=== PATIENT | male | born 1960 | race Two or more races ===

== ENCOUNTER → 2017-03-05 | Outpatient (CLI) | payer OTHER ==
[2017-03-05 17:21] LABS: Anion Gap 11 mmol/L; Blood Urea Nitrogen 18 mg/dL (9-20); Carbon Dioxide 35 mmol/L (22-30); Chloride 99 mmol/L (98-107); Glucose 97 mg/dL (74-99); Potassium 4.2 mmol/L (3.5-5.1); Sodium 145 mmol/L (137-145)
[2017-03-05 17:23] LABS: Basophils % (A) 1 %; Eosinophils # (A) 0.1 k/uL (0-0.7); Eosinophils % (A) 2 %; HCT 39.4 % (39.0-53.0); HGB 13.1 gm/dL (13.0-17.5); Lymphocytes # (A) 1.6 k/uL (1.0-4.8); Lymphocytes % (A) 31 %; MCHC 33.3 g/dL (31.0-37.0); MCV 90.1 fL (80.0-100.0); Mean Platelet Volume 7.3; Monocytes # (A) 0.3 k/uL (0-1.0); Monocytes % (A) 6 %; Neutrophils # (A) 3.1 k/uL (1.3-7.7); Neutrophils % (A) 59 %; Platelet Count 199 k/uL (150-450); RBC 4.37 m/uL (4.30-5.90); RDW 14.2 % (11.5-15.5); WBC 5.2 k/uL (3.8-10.6)
== END | disposition home or self-care (01) ==
LOC: LABPAT 16:31
PROVIDERS: ATTEND Urology
DX: Z01.818 Encounter for other preprocedural examination (principal); Z01.812 Encounter for preprocedural laboratory examination; C61 Malignant neoplasm of prostate; I10 Essential (primary) hypertension; E78.5 Hyperlipidemia, unspecified
CPT/HCPCS: 80048; 85025; 87077; 87086; 87186; 93005

== ENCOUNTER 2017-03-12 11:11 | Day surgery (SDC) | payer OTHER ==
[2017-03-07 12:01] VITALS: BMI 24.5
[~2017-03-12 11:11] MED LIST: DEXAMETHASONE SOD PHOSPHATE 10 MG/ML 1 ML VIAL IV ONE; HEPARIN SODIUM,PORCINE 5,000 UNIT/ML 1 ML VIAL SQ ONE; HYDROmorphone 0.5 MG/0.5 ML SYRINGE IVP PRN; MIDAZOLAM 2 MG/2 ML VIAL IV PRN; ONDANSETRON 4 MG/2 ML VIAL IVP ONE; ceFAZolin IN SWFI 2 GM/20 ML SYRINGE IVP ONE
[2017-03-12] MEDS: LACTATED RINGERS 1,000 ML IV SCH (12:10)
[2017-03-12] MEDS ORDERED: LIDOCAINE 1% 20 ML VIAL (10MG/ML) FOR IV START INTRADERMA ONE (12:10)
[2017-03-12] MEDS ORDERED: SCOPOLAMINE 1.5MG/72HR PATCH TRANSDERM ONE (12:11)
[2017-03-12] MEDS ORDERED: BUPIVACAINE (PF) 0.25% 30 ML VIAL SQ ONE ×2 (13:27)
[2017-03-12] MEDS ORDERED: fentaNYL (PF) 50 MCG/ML 2 ML AMP ONE (13:31)
[2017-03-12] MEDS ORDERED: GLYCOPYRROLATE 0.2 MG/ML 2 ML VIAL ONE (13:31)
[2017-03-12] MEDS ORDERED: PROPOFOL 10 MG/ML 20 ML VIAL IV ONE (13:31)
[2017-03-12] MEDS ORDERED: LIDOCAINE 1% INJ 10MG/ML (20 ML MDV) ONE (13:31)
[2017-03-12] MEDS ORDERED: ePHEDrine SULFATE/0.9% NACL/PF 50 MG/5 ML SYRINGE IV ONE (13:31)
[2017-03-12] MEDS ORDERED: HYDROmorphone (PF) 1 MG/ML ONE (13:31)
[2017-03-12] MEDS ORDERED: SUCCINYLCHOLINE CHLORIDE 100 MG/5 ML SYR IV ONE (13:31)
[2017-03-12] MEDS ORDERED: MIDAZOLAM 2 MG/2 ML VIAL ONE (13:31)
[2017-03-12] MEDS ORDERED: ROCURONIUM BROMIDE 10 MG/ML 10 ML VIAL IV ONE (13:31)
[2017-03-12] MEDS ORDERED: NEOSTIGMINE 1 MG/ML 10 ML VIAL ONE (13:31)
[2017-03-12] MEDS ORDERED: ONDANSETRON 4 MG/2 ML VIAL IVP PRN (15:36)
[2017-03-12] MEDS ORDERED: HYDROmorphone 2 MG/ML 1 ML SYRINGE IVP PRN (15:36)
[2017-03-12] MEDS ORDERED: KETOROLAC 30 MG/ML 1 ML VIAL IVP PRN (15:36)
[2017-03-12] MEDS ORDERED: LACTATED RINGERS 1,000 ML IV ONE (16:56)
[2017-03-12] MEDS: DEXTROSE 5%-0.45% NACL 1,000 ML IV SCH (17:23)
[2017-03-12] MEDS: HEPARIN SODIUM,PORCINE 5,000 UNIT/ML 1 ML VIAL SQ SCH (17:23)
[2017-03-13] MEDS: HEPARIN SODIUM,PORCINE 5,000 UNIT/ML 1 ML VIAL SQ SCH ×2 (00:27→07:23)
[2017-03-13] MEDS: DEXTROSE 5%-0.45% NACL 1,000 ML IV SCH ×2 (00:27→07:27)
[2017-03-13 02:44] VITALS: RESP 16
--- NOTE | 2017-03-13 07:26 | P.DS ---
Providers Date of admission: 03/12/2017 Expected date of discharge: 03/13/17 Attending physician: Lida Piña Primary care physician: Jozef Pretty MD Hospital Course: the patient is a 56-year-old male who was diagnosed with prostate cancer in late 2017 and has elected to undergo treatment with robotically assisted laparoscopic prostatectomy. The patient underwent the procedure performed by on the date of admission. He was comfortable postop and was discharged the following day with his Wilburn catheter in place. The patient's incisions appear to be intact and uninflamed. The patient was ambulatory and tolerating a regular diet. Procedures: pelvic lymphadenectomy and robotically assisted laparoscopic prostatectomy-2017 Plan - Discharge Summary Discharge Rx Participant: No New Discharge Prescriptions: New Acetaminophen-Codeine 300-30mg [Tylenol w/codeine #3] 1 tab PO Q6H PRN #15 tablet PRN Reason: Pain No Action Citalopram Hydrobromide [CeleXA] 20 mg PO DAILY Atorvastatin [Lipitor] 10 mg PO DAILY Multivitamin [Men's Multi-Vitamin] 1 each PO DAILY Discharge Medication List Atorvastatin [Lipitor] 10 mg PO DAILY 03/07/17 [History] Citalopram Hydrobromide [CeleXA] 20 mg PO DAILY 03/07/17 [History] Multivitamin [Men's Multi-Vitamin] 1 each PO DAILY 03/07/17 [History] Acetaminophen-Codeine 300-30mg [Tylenol w/codeine #3] 1 tab PO Q6H PRN #15 tablet 03/13/17 [Rx] Follow up Appointment(s)/Referral(s): Rito Baxter MD [STAFF PHYSICIAN] - 1 Week Activity/Diet/Wound Care/Special Instructions: Provide with leg bag and large bag Discharge Disposition: HOME SELF-CARE Pending Studies Pending Results: pathology report
[2017-03-13 07:37] VITALS: BP 128/65; PULSE 97; TEMP 98
--- NOTE | 2017-05-30 09:02 | P.OP ---
Date of Procedure: 03/12/17 Preoperative Diagnosis: prostate cancer Postoperative Diagnosis: prostate cancer Procedure(s) Performed: 1. robotic radical prostatectomy 2. robotic bilateral pelvic lymph node dissection Implants: none Anesthesia: NAHUM PRATT Surgeon: Lida Piña Estimated Blood Loss (ml): 100 IV fluids (ml): 1,600 Urine output (ml): 400 Pathology: other (prostate. seminal vesicles and lymph nodes) Condition: stable Disposition: PACU Indications for Procedure: prostate cancer Operative Findings: normal size prostate, no evidence of extra capsular extension, lymph nodes not enlarged Description of Procedure: This is a patient with a history of prostate cancer. The procedure of robot assisted laparoscopic radical prostatectomy was discussed with the patient including the potential risks and complications of the procedure. He elected to proceed with the operation. A nodule was not detected on digital exam under anesthesia. The patient was placed in a supine, Trendelenberg position with adequate padding of the pressure points, shoulders, back, legs and arms. He was then prepped and draped in the standard fashion. A 18F forman catheter was placed to gravity drainage. A Veress needle was placed through a codey-umbilical puncture and a pneumo-peritoneum created to 20mmHg during port placement which is thereafter lowered to 15mmHg. A 12mm port on the left side of the umbilicus was placed for the scope. Next, under vision a 8mm robotic ports was placed lateral to each rectus slightly below the camera port. The right assistant secretary right iliac fossa 12mm port and right paramedian 5mm port were placed followed by the left iliac fossa 5mm port. The robot was then docked to the 8mm robotic ports and then each robotic arm and tower was checked in relation to the patient's legs and hands to avoid inadvertent compression. The peritoneal cavity was inspected and then an inverted U-shaped incision began laterally to the left medial umbilical ligament and extended high across the midline to the right umbilical ligament. The limbs of the "U" extended to the level of the vasa on both sides. We next developed the preperitoneal space and the space of Retzius. Cautery was used to dissected the bladder away from the prostate. After the anterior bladder neck was incised and the bladder entered the the posterior bladder neck was exposed and the ureteral orifices identified. The posterior bladder neck was then incised and dissected away from the prostate. The bladder neck was noted to be normal and did not require reconstruction. The vas and the seminal vesicles were now exposed and dissected to their insertions into the prostate and were not spared. The posterior layer of the Denonvillier's fascia was incised to enter into the plane between prostate and perirectal fat. Each lateral pedicle was controlled with clips and cautery for hemostasis. Nerve preservation was performed as listed above. The puboprostatic ligament was incised where it inserted into the apex of the prostate and a plane between urethra and dorsal venous complex developed to expose the anterior urethral surface. The anterior wall of the urethra was transected with the scissors a few millimeters distal to the apex of the prostate. DV suture was placed. The freed specimen was then inspected and placed in an endo-catch specimen retrieval bag. The prostate was removed following the completion of the anastomosis. Internal and External Iliac lymph node packets were dissected after careful visualization of the hypogastric artery and obturator nerve. There was attention paid to hemostasis with judicious use of cautery. Two 3-0 V-Lock stitches (MVAC) tied together to form a pledget were used to complete the running continuous circumferential urethrovesical anastamosis with dual layer reconstruction. The outer layer V-Lock suture was placed initially to reapproximate Denonvillier's fascia posteriorly before placing the inner layer MVAC suture as the urethrovesical anastamosis proper. After the inner layer was tied, the anastamosis was checked for leaks before closing the outer layer anteriorly. A new 20 Lao Forman catheter was introduced and inflated to 20cc. The bladder was filled with 250 cc saline, with the balloon to test the integrity of the anastomosis. No leak was identified. The specimen was removed after enlarging the umbilical port incision as required. The umbilical fascia was closed with PDS suture and closed in layers. All ports were closed with a subcuticular stitch. Sponge, instrument, and needle counts were correct at the end of the case. The patient tolerated the procedure well and was accompanied to the recovery room in stable condition.
== END 2017-03-13 11:45 | disposition home or self-care (01) ==
LOC: ORWHC2ENDO 11:11 → EDSTATUS 13:00 → 3SUR 15:39 → ORWHC2ENDO 03-13 11:45
PROVIDERS: ATTEND Urology
DX: C61 Malignant neoplasm of prostate (principal); E78.5 Hyperlipidemia, unspecified; I10 Essential (primary) hypertension; E55.9 Vitamin D deficiency, unspecified; D70.9 Neutropenia, unspecified; F32.9 Major depressive disorder, single episode, unspecified; Z79.899 Other long term (current) drug therapy
CPT/HCPCS: 86900; 86901; 86850; 88307; 88309; 36415; 55866; C1762; J2250; J1170 ×2; J1644 ×2; J1100; J2710; J2405; J2001; J3010; J1885; J0330; J2704; J0690

== ENCOUNTER 2017-09-26 14:15 | Emergency (ER) | payer OTHER ==
[2017-09-26 15:18] VITALS: RESP 18
--- NOTE | 2017-09-26 16:50 | XR ---
EXAMINATION TYPE: XR hand complete RT DATE OF EXAM: 09/26/2017 COMPARISON: NONE HISTORY: Laceration pain TECHNIQUE: 3 views FINDINGS: There is some spurring at the IP joints. There is some soft tissue deformity consistent wit h laceration at the PIP joint of the little finger. There are small foreign bodies near the skin surf calvin. There is a soft tissue mass with 3 mm calcification adjacent to the distal end of the proximal p halanx of the thumb. There are no erosions. There is nondisplaced longitudinal fracture along the sh aft of the middle phalanx of the little finger. This is seen on just one view. IMPRESSION: Osteoarthritis. Foreign body near the skin surface of the PIP joint of the little finger. Mass with calcification or foreign body at the thumb. No change compared to [place] exam at 1:00 PM today. Longitudinal nondisplaced fracture of the middle phalanx of the little finger. No change in position.
[2017-09-26] MEDS ORDERED: ceFAZolin 1,000 MG VIAL IM STA (16:54)
[2017-09-26] MEDS ORDERED: DIPH,PERTUS(ACELL)TETVAC-LF 0.5 ML VIAL IM ONE (16:54)
[2017-09-26] MEDS ORDERED: LIDOCAINE 1% INJ 10MG/ML (20 ML MDV) SQ ONE (16:55)
--- NOTE | 2017-09-26 16:56 | ED ---
General Adult HPI - General Chief complaint: Wound/Laceration Stated complaint: CRUSHING INJURY Time Seen by Provider: 09/26/17 15:43 Source: patient Mode of arrival: ambulatory Limitations: no limitations - History of Present Illness Initial comments: 57-year-old male patient presents to the emergency department for a chief complaint of right hand injury. Patient states he was carrying a piece of boiler machinery today when it was dropped on his right 5th digit. Patient states the piece of machinery likely weighed up to 500 pounds. Patient denies dropping the machinery anywhere else on the hand. Patient denies any other injuries. Patient states he did try to go to urgent care but they could not tell if he had a fracture so they sent him to the emergency department. Patient is right-hand dominant. Patient has not injured this hand before. Patient has no other complaints at this time including shortness of breath, chest pain, abdominal pain, nausea or vomiting, headache, or visual changes. - Related Data Home Medications Medication Instructions Recorded Confirmed Atorvastatin [Lipitor] 10 mg PO DAILY 03/07/17 03/12/17 Citalopram Hydrobromide [CeleXA] 20 mg PO DAILY 03/07/17 03/12/17 Multivitamin [Men's Multi-Vitamin] 1 each PO DAILY 03/07/17 03/12/17 Previous Rx's Medication Instructions Recorded Acetaminophen-Codeine 300-30mg 1 tab PO Q6H PRN #15 tablet 03/13/17 [Tylenol w/codeine #3] Cephalexin [Keflex] 500 mg PO TID 10 Days capsule 09/26/17 Allergies Allergy/AdvReac Type Severity Reaction Status Date / Time No Known Allergies Allergy Verified 09/26/17 15:18 Review of Systems ROS Statement: Those systems with pertinent positive or pertinent negative responses have been documented in the HPI. ROS Other: All systems not noted in ROS Statement are negative. Past Medical History Past Medical History: Cancer, Hyperlipidemia Additional Past Medical History / Comment(s): prostate cancer History of Any Multi-Drug Resistant Organisms: None Reported Additional Past Surgical History / Comment(s): colonoscopy Past Anesthesia/Blood Transfusion Reactions: No Reported Reaction Past Psychological History: Anxiety Smoking Status: Never smoker Past Alcohol Use History: Occasional Past Drug Use History: None Reported - Past Family History Mother Family Medical History: No Reported History General Exam Limitations: no limitations General appearance: alert, in no apparent distress Head exam: Present: atraumatic, normocephalic, normal inspection Eye exam: Present: normal appearance, PERRL, EOMI. Absent: scleral icterus, conjunctival injection, periorbital swelling, periorbital tenderness ENT exam: Present: normal exam, mucous membranes moist Neck exam: Present: normal inspection, full ROM. Absent: tenderness, meningismus, lymphadenopathy Respiratory exam: Present: normal lung sounds bilaterally. Absent: respiratory distress, wheezes, rales, rhonchi, stridor Cardiovascular Exam: Present: regular rate, normal rhythm, normal heart sounds. Absent: systolic murmur, diastolic murmur, rubs, gallop, clicks Extremities exam: Present: tenderness (tenderness along the right 5th digit), normal capillary refill (Capillary refill less than 2 seconds in the right fifth digit as well as the remainder of the right hand. Radial pulse 2+), joint swelling (Patient does have minimal swelling of the right fifth digit), other (Sensation intact in the right fifth digit. Patient has a 2 cm x 0.5 cm skin avulsion extending along the radial and palmar aspect of the right fifth digit. There is also a 2 cm x 1 cm superficial abrasion to the lateral aspect of the right fifth digit over the PIP joint. 3 small foreign bodies were removed. No visualization of tendons or bone.). Absent: full ROM (Patient has about 45 of flexion of the MCP, DIP, and PIP joints in the right fifth digit.) Neurological exam: Present: alert, oriented X3, CN II-XII intact Psychiatric exam: Present: normal affect, normal mood Course Vital Signs 09/26/17 15:12 Temperature 98.2 F Pulse Rate 64 Respiratory 18 Rate Blood Pressure 137/78 O2 Sat by Pulse 100 Oximetry Medical Decision Making - Medical Decision Making 57-year-old male presents to the emergency department for a chief complaint of injury to the right fifth digit. Patient states a 500 pound piece of equipment fell on his right fifth digit. Patient did go to urgent care but they could not diagnose whether he had a fracture or not. I did attempt to upload disc from urgent care as he had an x-ray there but at this point x-ray tech recommends ordering x-ray here. On exam neurovascular intact in the right fifth digit. Patient is able to bend all joints in the finger to about 45 degrees. There is a 2 cm x 0.5 cm skin avulsion to the radial aspect of the right fifth digit along the middle phalanx. There is also a more superficial abrasion to the ulnar aspects of the right fifth digit. X-ray of the right hand shows some soft tissue deformity consistent with a laceration at the PIP joint of the little finger. There are small foreign bodies near the skin surface. There is a soft tissue mass with a calcification on the proximal phalanx of the thumb. Patient is aware of this and has had it since childhood. There are no erosions. There is a nondisplaced longitudinal fracture along the shaft of the middle phalanx of the little finger on one view. Finger was numbed using 4 ml 1% lidocaine digital block. 3 foreign bodies were removed from the wound. It was soaked in soap and water and irrigated extensively with a liter of sterile water. It was then reinspected for any additional foreign bodies and none were found. Area cannot be sutured at this point due to avulsion of skin so Gelfoam was applied. Bleeding controlled at this point. I did speak with Dr. Whitman who will see the patient on Friday. He is up-to-date on tetanus but was given Ancef and Keflex. He agrees to follow up. Disposition Clinical Impression: Finger fracture, right, Open fracture Disposition: HOME SELF-CARE Condition: Good Instructions: Finger Fracture (ED) Additional Instructions: Please take Keflex as directed. Use splint on finger. Please follow-up with orthopedics on Friday. Return to the emergency department if you have any worsening symptoms such as spreading redness or signs of infection. Prescriptions: Cephalexin [Keflex] 500 mg PO TID 10 Days capsule Is patient prescribed a controlled substance at d/c from ED?: No Referrals: Jozef Pretty MD [Primary Care Provider] - 1-2 days Time of Disposition: 18:14
[2017-09-26] MEDS ORDERED: GELATIN SPONGE,ABSORB (LARGE) 1 EACH SPONGE TOPICAL STA (17:25)
[2017-09-26 18:52] VITALS: BP 160/85; PULSE 67; TEMP 98.1
== END 2017-09-26 18:50 | disposition home or self-care (01) ==
LOC: EC 14:15
DX: S62.656B Nondisplaced fracture of middle phalanx of right little finger, initial encounter for open fracture (principal); M79.89 Other specified soft tissue disorders; E78.5 Hyperlipidemia, unspecified; F41.9 Anxiety disorder, unspecified; Z79.899 Other long term (current) drug therapy; Z23 Encounter for immunization; W31.89XA Contact with other specified machinery, initial encounter; Y93.89 Activity, other specified; Y92.69 Other specified industrial and construction area as the place of occurrence of the external cause; Y99.0 Civilian activity done for income or pay
CPT/HCPCS: 73130; 90715; 99283; 90471; 96372; J0690; J2001

== ENCOUNTER 2017-12-31 08:36 | Day surgery (SDC) | payer OTHER ==
[2017-12-25 12:56] VITALS: BMI 25.0
[~2017-12-31 08:36] MED LIST changes: +DEXAMETHASONE SOD PHOSPHATE 4 MG/ML 1 ML VIAL IV ONE; +FAMOTIDINE 20 MG/2 ML VIAL IV ONE; -HEPARIN SODIUM,PORCINE 5,000 UNIT/ML 1 ML VIAL SQ ONE; +LACTATED RINGERS 1,000 ML IV SCH; -MIDAZOLAM 2 MG/2 ML VIAL IV PRN; +Pre Op ABX Message 1 EACH MISC MISCELLANE ONE; +ceFAZolin 1,000 MG in DEXTROSE/WATER 1 50ML.BAG IV ONE; -ceFAZolin IN SWFI 2 GM/20 ML SYRINGE IVP ONE
[2017-12-31] MEDS ORDERED: LIDOCAINE 1% 20 ML VIAL (10MG/ML) FOR IV START INTRADERMA ONE (09:19)
[2017-12-31] MEDS ORDERED: PROPOFOL 10 MG/ML 20 ML VIAL IV ONE (10:21)
[2017-12-31] MEDS ORDERED: GLYCOPYRROLATE 0.2 MG/ML 2 ML VIAL ONE (10:21)
[2017-12-31] MEDS ORDERED: NEOSTIGMINE 1 MG/ML 10 ML VIAL ONE (10:21)
[2017-12-31] MEDS ORDERED: fentaNYL (PF) 50 MCG/ML 2 ML AMP ONE (10:21)
[2017-12-31] MEDS ORDERED: MIDAZOLAM 2 MG/2 ML VIAL ONE (10:21)
[2017-12-31] MEDS ORDERED: LIDOCAINE 1% INJ 10MG/ML (20 ML MDV) ONE (10:21)
[2017-12-31] MEDS ORDERED: SUCCINYLCHOLINE CHLORIDE 100 MG/5 ML SYR IV ONE (10:21)
[2017-12-31] MEDS ORDERED: ROCURONIUM BROMIDE 10 MG/ML 10 ML VIAL IV ONE (10:21)
[2017-12-31] MEDS ORDERED: ceFAZolin 1,000 MG/50 ML BAG (PMX) IVPB ONE (10:26)
--- NOTE | 2017-12-31 10:59 | P.OP ---
Date of Procedure: 12/31/17 Preoperative Diagnosis: Left base of tongue/vallecula mass Postoperative Diagnosis: Same Procedure(s) Performed: Direct microlaryngoscopy with biopsy left base of tongue Flexible bronchoscopy Rigid esophagoscopy Anesthesia: TERENCE Surgeon: Ethan Mclean Estimated Blood Loss (ml): 2 Pathology: other (Left base of tongue biopsy) Condition: stable Disposition: PACU Indications for Procedure: This is a 57-year-old white male with some dysphagia symptoms and notable left base of tongue/vallecula lesion Operative Findings: Approximate 2.5 x 3 cm left base of tongue lesion extending into the vallecula- this is exophytic and firm multinodular Description of Procedure: The patient brought in to place a supine position. The patient underwent induction of general anesthesia with oral endotracheal intubation without difficulty. The patient was prepped and draped in usual aseptic fashion. Tooth guard was placed. Rigid esophagoscopy was performed to a level of 40 cm from the upper incisors with no abnormalities noted in the esophagus. This was withdrawn and there was no notable trauma to the mucosa at all. Direct laryngoscopy was then performed with systematic evaluation of the base of tongue vallecula both piriform sinuses post cricoid area and endolarynx. With the laryngoscope in position to visualize the vocal cords the laryngoscope was placed in suspension and flexible bronchoscopy was performed to the secondary bronchi with no abnormalities noted. The bronchoscope was then withdrawn. The laryngoscopy including microlaryngoscopy was then continued to visualize the left base of tongue mass and multiple biopsies were taken some sent for formalin and some sent in saline including for cytology and as well for HPV markers. Hemostasis was gained spontaneously. The laryngoscope and tooth guard were removed. The patient was allowed to emerge from general anesthesia having tolerated procedure well was extubated in the operative suite and transferred to postop recovery area in satisfactory condition.
[2017-12-31 11:10] VITALS: TEMP 98.1
[2017-12-31] MEDS ORDERED: LACTATED RINGERS 1,000 ML IV ONE (11:34)
[2017-12-31 12:02] VITALS: BP 142/70; PULSE 67; RESP 18
== END 2017-12-31 12:31 | disposition home or self-care (01) ==
LOC: OR 08:36
PROVIDERS: ATTEND Otolaryngology
DX: C01 Malignant neoplasm of base of tongue (principal); E04.1 Nontoxic single thyroid nodule; E78.5 Hyperlipidemia, unspecified; Z79.2 Long term (current) use of antibiotics; Z79.52 Long term (current) use of systemic steroids; Z79.899 Other long term (current) drug therapy; Z85.46 Personal history of malignant neoplasm of prostate
CPT/HCPCS: 31536; 31622; 43191; J2250; J1100; J2710; J2405; J2001; J3010; J0690; J0330; J2704; 88305; 88341; 88342

== ENCOUNTER → 2018-01-17 | Outpatient (CLI) | payer OTHER ==
--- NOTE | 2018-01-20 16:37 | PE ---
Nuclear medicine PET/CT history: Carcinoma of tongue, initial Patient received 9.9 mCi F-18 FDG intravenously and delayed scanning was performed from the skull bas e to the mid thighs. Localization and attenuation correction CT scan was performed. Small field-of-vi ew images were also performed through the head and neck. Correlation to CT neck 12/23/2017 FINDINGS: Head and neck: There is hypermetabolic uptake associated with the base of the tongue on the left exte nding towards the vallecula compatible with patient's history of carcinoma, there is associated soft tissue mass present as previously described, SUV is 18. There is increased hypermetabolic uptake at a nonenlarged node at the level of the hyoid bone on the left just posterior to the submandibular glan d, SUV is 3.4. Small immediate adjacent node is also present again with only mild uptake on the left, SUV 3.4. Right-sided thyroid nodule shows associated hypermetabolic uptake, SUV is 6.7. Lungs show no mass. No mediastinal, hilar, or axillary adenopathy. Abdomen pelvis: No retroperitoneal adenopathy. No evident liver or adrenal mass. No suspicious hyperm etabolic uptake. The aorta shows normal caliber. There is no pelvic adenopathy or free fluid. Osseous structures are within normal limits. 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 Suspicious hypermetabolic uptake within the right thyroid gland.
== END | disposition home or self-care (01) ==
LOC: RADPETMAIN 14:26
PROVIDERS: ATTEND Internal Medicine Hematology & Oncology
DX: R93.89 Abnormal findings on diagnostic imaging of other specified body structures (principal); C01 Malignant neoplasm of base of tongue
CPT/HCPCS: 78815; A9552

== ENCOUNTER 2018-04-04 10:00 | Inpatient (IN) | payer OTHER ==
[2018-04-04] MEDS ORDERED: SODIUM CHLORIDE 0.9% 2,000 ML IV STA (10:55)
[2018-04-04] MEDS ORDERED: SODIUM CHLORIDE 0.9% 1,000 ML IV STA (10:55)
[2018-04-04] MEDS ORDERED: KETOROLAC 30 MG/ML 1 ML VIAL IVP STA (10:57)
--- NOTE | 2018-04-04 11:02 | ED ---
Nausea/Vomiting/Diarrhea HPI - General Chief complaint: Nausea/Vomiting/Diarrhea Stated complaint: Dehydration Time Seen by Provider: 04/04/18 10:25 Source: patient, family, RN notes reviewed Mode of arrival: ambulatory Limitations: no limitations - History of Present Illness Initial comments: This a 57-year-old male with a history of throat and posterior tongue cancer who is had a total of 35 radiation treatments last one being 3 days ago and last chemo 2 weeks ago who is been feeling with respect to continue to drink for some period time he did decrease oral intake over last month he has severe pain in his throat when he tries to swallow he's had decreased bowel movements to decrease oral intake he's supposed be taking 6 and sugars every day he's states he U2). He tried Viscous Xylocaine with other components and after taking as he throws up short time later. They're requesting to drink anything he throws up a short time later. He's had concentrated urine generalized severe weakness no focal deficits. He was sent over here by radiation oncology for evaluation and treatment. MD complaint: nausea, vomiting, other - Related Data Home Medications Medication Instructions Recorded Confirmed Hydrocodone/Acetaminophen [[place] 1 tab PO QID PRN 03/13/18 04/04/18 10-325] LORazepam [Ativan] 0.5 mg PO QID 04/04/18 04/04/18 Multivitamins, Thera [Multivitamin 1 tab PO DAILY 04/04/18 04/04/18 (formulary)] Ondansetron Odt [Zofran Odt] 8 mg PO Q4H PRN 04/04/18 04/04/18 Pantoprazole [Protonix] 40 mg PO DAILY 04/04/18 04/04/18 fentaNYL 12MCG/HR PATCH [Duragesic 1 patch TRANSDERM Q72H 04/04/18 04/04/18 12MCG/HR] Allergies Allergy/AdvReac Type Severity Reaction Status Date / Time No Known Allergies Allergy Verified 04/04/18 10:40 Review of Systems ROS Statement: Those systems with pertinent positive or pertinent negative responses have been documented in the HPI. ROS Other: All systems not noted in ROS Statement are negative. Past Medical History Past Medical History: Cancer, Hyperlipidemia Additional Past Medical History / Comment(s): prostate cancer, throat cancer History of Any Multi-Drug Resistant Organisms: None Reported Past Surgical History: Prostate Surgery Additional Past Surgical History / Comment(s): colonoscopy. PROSTATECTOMY Past Anesthesia/Blood Transfusion Reactions: No Reported Reaction Past Psychological History: Anxiety Smoking Status: Never smoker Past Alcohol Use History: None Reported Past Drug Use History: None Reported - Past Family History Mother Family Medical History: No Reported History General Exam - General Exam Comments Initial Comments: This is a well-developed asthenic appearing male who is awake alert oriented 3 Limitations: no limitations General appearance: lethargic Head exam: Present: atraumatic, normocephalic, normal inspection Eye exam: Present: normal appearance, PERRL, EOMI. Absent: scleral icterus, conjunctival injection, periorbital swelling ENT exam: Present: mucous membranes dry, other (Posterior pharyngeal erythema with some faint evidence of possible whitish exudate on the uvula and posterior pharynx) Neck exam: Present: normal inspection. Absent: tenderness, meningismus, lymphadenopathy Respiratory exam: Present: normal lung sounds bilaterally. Absent: respiratory distress, wheezes, rales, rhonchi, stridor Cardiovascular Exam: Present: regular rate, normal rhythm, normal heart sounds. Absent: systolic murmur, diastolic murmur, rubs, gallop, clicks GI/Abdominal exam: Present: soft, normal bowel sounds. Absent: distended, tenderness, guarding, rebound, rigid Extremities exam: Present: normal inspection, full ROM, normal capillary refill. Absent: tenderness, pedal edema, joint swelling, calf tenderness Back exam: Present: normal inspection Neurological exam: Present: alert, oriented X3, CN II-XII intact Psychiatric exam: Present: normal affect, normal mood Skin exam: Present: warm, dry, intact, normal color. Absent: rash Course Vital Signs 04/04/18 10:05 Temperature 98.3 F Pulse Rate 96 Respiratory 18 Rate Blood Pressure 118/75 O2 Sat by Pulse 97 Oximetry Medical Decision Making - Medical Decision Making I did discuss findings with patient has . Patient will be admitted for IV hydration and evaluation by medical and radiation oncology. He does demonstrate failure to thrive, dehydration, dysphagia - Lab Data Result diagrams: 04/04/18 12:00 04/04/18 10:58 Lab Results 04/04/18 04/04/18 04/04/18 Range/Units 10:58 10:58 12:00 WBC 2.1 L (3.8-10.6) k/uL RBC 2.71 L (4.30-5.90) m/uL Hgb 8.6 L D (13.0-17.5) gm/dL Hct 24.3 L (39.0-53.0) % MCV 89.8 (80.0-100.0) fL MCH 31.5 (25.0-35.0) pg MCHC 35.1 (31.0-37.0) g/dL RDW 17.4 H (11.5-15.5) % Plt Count 234 (150-450) k/uL Neutrophils % (Manual) 63 % Band Neutrophils % 5 % Lymphocytes % (Manual) 19 % Monocytes % (Manual) 12 % Eosinophils % (Manual) 1 % Neutrophils # (Manual) 1.40 (1.3-7.7) k/uL Lymphocytes # (Manual) 0.40 L (1.0-4.8) k/uL Monocytes # (Manual) 0.25 (0-1.0) k/uL Eosinophils # (Manual) 0.02 (0-0.7) k/uL Nucleated RBCs 0 0 (0-0) /100 WBC Manual Slide Review Performed Anisocytosis Slight Slight Sodium 137 (137-145) mmol/L Potassium 4.7 (3.5-5.1) mmol/L Chloride 99 (98-107) mmol/L Carbon Dioxide 29 (22-30) mmol/L Anion Gap 9 mmol/L BUN 23 H (9-20) mg/dL Creatinine 1.07 (0.66-1.25) mg/dL Est GFR (CKD-EPI)AfAm 89 (>60 ml/min/1.73 sqM) Est GFR (CKD-EPI)NonAf 77 (>60 ml/min/1.73 sqM) Glucose 120 H (74-99) mg/dL Calcium 9.4 (8.4-10.2) mg/dL Total Bilirubin 0.6 (0.2-1.3) mg/dL AST 12 L (17-59) U/L ALT 24 (21-72) U/L Alkaline Phosphatase 87 (38-126) U/L Total Protein 6.7 (6.3-8.2) g/dL Albumin 3.7 (3.5-5.0) g/dL Amylase <30 L (30-110) U/L Lipase 21 L (23-300) U/L - Radiology Data Radiology results: image reviewed Interpreted by me: I did review the imaging and report no evidence of acute findings. Disposition Clinical Impression: Intractable vomiting with nausea, Failure to thrive in adult, Anemia, Dysphagia , Dehydration, History of cancer Disposition: ADMITTED IP TO THIS [facility] Condition: Stable Referrals: Jozef Pretty MD [Primary Care Provider] - 1-2 days
[2018-04-04 11:22] LABS: Anisocytosis Slight
[2018-04-04 11:29] LABS: ALT 24 U/L (21-72); AST 12 U/L (17-59); Albumin 3.7 g/dL (3.5-5.0); Alkaline Phosphatase 87 U/L (38-126); Amylase <30 U/L (30-110); Anion Gap 9 mmol/L; Blood Urea Nitrogen 23 mg/dL (9-20); Calcium 9.4 mg/dL (8.4-10.2); Carbon Dioxide 29 mmol/L (22-30); Chloride 99 mmol/L (98-107); Glucose 120 mg/dL (74-99); Lipase 21 U/L (23-300); Potassium 4.7 mmol/L (3.5-5.1); Sodium 137 mmol/L (137-145); Total Bilirubin 0.6 mg/dL (0.2-1.3); Total Protein 6.7 g/dL (6.3-8.2)
--- NOTE | 2018-04-04 11:55 | XR ---
EXAMINATION TYPE: XR chest 2V DATE OF EXAM: 04/04/2018 COMPARISON: NONE HISTORY: Nausea, vomiting and pain. History of malignancy. TECHNIQUE: Frontal and lateral views of the chest are obtained. FINDINGS: There is no focal air space opacity, pleural effusion, or pneumothorax seen. The cardiac silhouette size is within normal limits. IMPRESSION: No acute cardiopulmonary process.
--- NOTE | 2018-04-04 11:57 | XR ---
EXAMINATION TYPE: XR KUB DATE OF EXAM: 04/04/2018 11:29 AM CLINICAL HISTORY: Nausea, vomiting, history of malignancy TECHNIQUE: 2 upright views of the abdomen are obtained in the AP projection. COMPARISON: None. FINDINGS: No evidence of pneumoperitoneum. No visceromegaly. No evidence of dilated large or small alea wel. No suspicious intra-abdominal or pelvic calcifications. Visualized osseous structures are intact . No suspicious osseous lesions. Degenerative type changes are seen of L4-L5 and L5-S1. IMPRESSION: No acute intra-abdominal or pelvic process.
[2018-04-04 12:01] LABS: Nucleated Red Blood Cells 0 /100 WBC (0-0)
[2018-04-04 12:22] LABS: Anisocytosis Slight; HCT 24.3 % (39.0-53.0); MCH 31.5 pg (25.0-35.0); MCHC 35.1 g/dL (31.0-37.0); MCV 89.8 fL (80.0-100.0); Mean Platelet Volume 6.4; Platelet Count 234 k/uL (150-450); RBC 2.71 m/uL (4.30-5.90); RDW 17.4 % (11.5-15.5); WBC 2.1 k/uL (3.8-10.6)
[2018-04-04 12:26] LABS: HGB 8.6 gm/dL (13.0-17.5)
[2018-04-04 12:57] LABS: Band Neutrophils % 5 %; Eosinophils # (M) 0.02 k/uL (0-0.7); Monocytes # (M) 0.25 k/uL (0-1.0); Neutrophils % (M) 63 %; Nucleated Red Blood Cells 0 /100 WBC (0-0); Total Cells Counted 100
[2018-04-04] MEDS ORDERED: NALOXONE 0.4 MG/ML 1 ML VIAL IV PRN (13:24)
[2018-04-04] MEDS ORDERED: HYDROmorphone 2 MG TAB PO PRN (13:24)
[2018-04-04] MEDS: SODIUM CHLORIDE 0.9% 1,000 ML IV SCH ×2 (14:07→23:25)
[2018-04-04] MEDS: ONDANSETRON 4 MG/2 ML VIAL IVP PRN ×2 (14:16→23:25)
[2018-04-04] MEDS: HYDROmorphone 1 MG/ML 1 ML SYRINGE IVP PRN (14:17)
[2018-04-04 16:33] VITALS: BMI 25.0
[2018-04-04] MEDS: KETOROLAC 30 MG/ML 1 ML VIAL IVP PRN (19:18)
[2018-04-04] MEDS: LORazepam 0.5 MG TAB PO SCH ×2 (20:05→20:06)
[2018-04-04] MEDS: PANTOPRAZOLE 40 MG/10 ML VIAL IVP SCH (20:05)
--- NOTE | 2018-04-04 23:12 | P.HPIM ---
History of Present Illness H&P Date: 04/04/18 Chief Complaint: Nausea and vomiting and unable to tolerate oral diet This a 57-year-old male with a history of hyperlipidemia, prostate cancer status post prostatectomy and recently diagnosed throat and posterior tongue cancer who is had a total of 35 radiation treatments last one being 3 days ago and last chemo 2 weeks ago presented to ER due to decreased oral intake and nausea and vomiting and unable to tolerate oral diet. As per his patient has not been eating solid diet at all for the past 6 weeks. Patient not able to tolerate liquids as well. Patient also having burning pain in the throat and tried multiple medications without much relief. Patient was sent to the hospital by his radiation oncology physician. Chest x-ray showed no acute cardio pulmonary process KUB x-ray showed no acute intra-abdominal process. WBC 2.1 and hemoglobin 8.6 and BUN 23 Review of Systems Constitutional: Patient denies any fever or chills . No generalized weakness or weight loss. Abdomen: Nausea and vomiting and throat pain. No diarrhea patient does have constipation. No abdominal pain. Cardiovascular: Patient denies any chest pain or short of breath no palpitations. Respiratory: patient denied any cough is from production. No shortness of breath Neurologic: Patient denied any numbness or tingling headache. Musculoskeletal: Patient denies any complaints of joint swelling or deformity. Skin: Negative Psychiatric: Negative Endocrine: No heat or cold intolerance. No recent weight gain. Genitourinary: No dysuria or hematuria. All other 14 point ROS negative except the above Past Medical History Past Medical History: Cancer, Hyperlipidemia Additional Past Medical History / Comment(s): prostate cancer, throat cancer History of Any Multi-Drug Resistant Organisms: None Reported Past Surgical History: Prostate Surgery Additional Past Surgical History / Comment(s): colonoscopy. PROSTATECTOMY Past Anesthesia/Blood Transfusion Reactions: No Reported Reaction Past Psychological History: Anxiety Smoking Status: Never smoker Past Alcohol Use History: None Reported Past Drug Use History: None Reported - Past Family History Mother Family Medical History: No Reported History Medications and Allergies Home Medications Medication Instructions Recorded Confirmed Type Hydrocodone/Acetaminophen [[place] 1 tab PO QID PRN 03/13/18 04/04/18 History 10-325] LORazepam [Ativan] 0.5 mg PO QID 04/04/18 04/04/18 History Multivitamins, Thera [Multivitamin 1 tab PO DAILY 04/04/18 04/04/18 History (formulary)] Ondansetron Odt [Zofran Odt] 8 mg PO Q4H PRN 04/04/18 04/04/18 History Pantoprazole [Protonix] 40 mg PO DAILY 04/04/18 04/04/18 History fentaNYL 12MCG/HR PATCH [Duragesic 1 patch TRANSDERM Q72H 04/04/18 04/04/18 History 12MCG/HR] Allergies Allergy/AdvReac Type Severity Reaction Status Date / Time No Known Allergies Allergy Verified 04/04/18 10:40 Physical Exam Vitals: Vital Signs Temp Pulse Resp BP Pulse Ox 04/04/18 14:07 98.9 F 90 18 133/79 98 04/04/18 13:30 98.7 F 87 16 134/73 98 04/04/18 13:20 86 18 134/73 98 04/04/18 13:10 84 17 134/73 98 04/04/18 13:00 85 14 141/72 98 04/04/18 12:50 86 15 141/72 99 04/04/18 12:40 83 18 141/72 98 04/04/18 12:30 92 16 139/74 98 04/04/18 12:20 87 17 139/74 99 04/04/18 12:10 89 16 139/74 98 04/04/18 12:00 94 14 125/74 100 04/04/18 11:54 96 21 125/74 99 04/04/18 10:05 98.3 F 96 18 118/75 97 Intake and Output 04/03/18 04/04/18 04/04/18 22:59 06:59 14:59 Other: Weight 88.451 kg PHYSICAL EXAMINATION: Patient is lying in the bed comfortably, no acute distress, awake alert and oriented.. HEENT: Normocephalic. Neck is supple. Pupils reactive. Nostrils clear. Oral cavity is moist. Ears reveal no drainage. Neck reveals no JVD, carotid bruits, or thyromegaly. CHEST EXAMINATION: Trachea is central. Symmetrical expansion. Lung calhoun clear to auscultation and percussion. CARDIAC: Normal S1, S2 with no gallops. No murmurs ABDOMEN: Soft. Bowel sounds normal. No organomegaly. No abdominal bruits. Extremities: reveal no edema. No clubbing or cyanosis Neurologically awake, alert, oriented x3 with well-coordinated movements. No focal deficits noted Skin: No rash or skin lesions. Psychiatric: Coperative. Nonsuicidal Musculoskeletal: No joint swelling or deformity. Normal range of motion. Results CBC & Chem 7: 04/04/18 12:00 04/04/18 10:58 Labs: Abnormal Lab Results - Last 24 Hours (Table) 04/04/18 04/04/18 Range/Units 10:58 12:00 WBC 2.1 L (3.8-10.6) k/uL RBC 2.71 L (4.30-5.90) m/uL Hgb 8.6 L D (13.0-17.5) gm/dL Hct 24.3 L (39.0-53.0) % RDW 17.4 H (11.5-15.5) % Lymphocytes # (Manual) 0.40 L (1.0-4.8) k/uL BUN 23 H (9-20) mg/dL Glucose 120 H (74-99) mg/dL AST 12 L (17-59) U/L Amylase <30 L (30-110) U/L Lipase 21 L (23-300) U/L Thrombosis Risk Factor Assmnt - DVT/VTE Prophylaxis DVT/VTE Prophylaxis: Pharmacologic Prophylaxis ordered Assessment and Plan Assessment: Nausea vomiting and unable to tolerate oral diet due to recent history of radiation 3 days ago Throat cancer status post chemotherapy 2 weeks ago and radiation 3 days ago History of prostate cancer status post prostatectomy Anxiety Mild neutropenia with WBC 2.1 due to chemotherapy. DVT prophylaxis Plan: Patient will be continued on IV fluids. Continue with liquid diet as tolerated. Continue with Zofran when necessary for nausea and vomiting along with Pepcid IV. Oncology and radiation oncology was consulted. Continue with symptomatic management and further recommendations based on the clinical course. Discussed with the patient and his at bedside in detail. Time with Patient: Greater than 30
[2018-04-04] MEDS: HEPARIN SODIUM,PORCINE 5,000 UNIT/ML 1 ML VIAL SQ SCH (23:27)
[2018-04-05 07:08] LABS: Anisocytosis Slight; HCT 23.9 % (39.0-53.0); HGB 8.3 gm/dL (13.0-17.5); MCH 31.5 pg (25.0-35.0); MCHC 34.9 g/dL (31.0-37.0); MCV 90.3 fL (80.0-100.0); Mean Platelet Volume 6.2; Platelet Count 200 k/uL (150-450); RBC 2.65 m/uL (4.30-5.90); RDW 17.4 % (11.5-15.5); WBC 1.8 k/uL (3.8-10.6)
[2018-04-05 07:17] LABS: Anion Gap 5 mmol/L; Blood Urea Nitrogen 20 mg/dL (9-20); Calcium 8.5 mg/dL (8.4-10.2); Carbon Dioxide 29 mmol/L (22-30); Chloride 106 mmol/L (98-107); Glucose 95 mg/dL (74-99); Potassium 4.7 mmol/L (3.5-5.1); Sodium 140 mmol/L (137-145)
[2018-04-05] MEDS: PANTOPRAZOLE 40 MG/10 ML VIAL IVP SCH ×2 (07:34→20:01)
[2018-04-05] MEDS: LORazepam 0.5 MG TAB PO SCH ×4 (07:34→22:11)
[2018-04-05] MEDS: HEPARIN SODIUM,PORCINE 5,000 UNIT/ML 1 ML VIAL SQ SCH ×2 (07:35→18:44)
[2018-04-05] MEDS: KETOROLAC 30 MG/ML 1 ML VIAL IVP PRN ×2 (07:36→13:40)
[2018-04-05] MEDS: ONDANSETRON 4 MG/2 ML VIAL IVP PRN (07:37)
[2018-04-05 08:17] LABS: Band Neutrophils % 1 %; Lymphocytes # (M) 0.36 k/uL (1.0-4.8); Neutrophils % (M) 57 %; Nucleated Red Blood Cells 0 /100 WBC (0-0); Total Cells Counted 100
[2018-04-05] MEDS: MAG HYDROX/AL HYDROX/SIMETH 30 ML, LIDOCAINE VISCOUS 30 ML, diphenhydrAMINE ELIXIR 75 M... PO SCH ×12 (09:11→22:11)
--- NOTE | 2018-04-05 11:52 | P.CONS ---
History of Present Illness - Reason for Consult Consult date: 04/05/18 Squamous cell carcinoma Requesting physician: Jaun Hinojosa - Chief Complaint Inability to tolerate po intake, pain - History of Present Illness Mr Randall is a pleant male patient of Dr. Pond, who originally was seen in December/2017, after undergoing evaluation for a progressive sore throat that worsened over 6 month period. He did not respond to outpatient antibiotics so he was sent for further evaluation by ENT. ENT identified a mass- like area at the base of his tongue, therefore further diagnostics were ordered. A CT scan soft tissue neck on 12/23/17 revealed ill-defined mass 2.7x3.9cm with an adjacent LN 7mm (felt to be suspicious for malignancy). Laryngoscopy with biopsy on 12/31/17 was positive for squamous cell carcinoma, P16 HPV associated malignancy. He subsequently underwent a PET scan that did not show evidence of distant disease. COncurrent Chemotherapy with Cisplatinum based regimen and radiaiton through Dr. Gonzalez was intitiated on 02/12/18, and he completed 6 cycles of chemotherapy and radiation the week of March 20, 2018. Patient seen with at bedside. He stated the toradol, dilaudid, topical analgesics are not helping his pain in mouth and throat. He is uncomfortable and frustrated. His states this has been getting worse over the past 4 weeks and they have had not relief with any of the interventions this far. He is unable to drink water without pain or vomiting. COnstipation has also been an issue. Dr. Gonzalez did recently start a fentanyl patch, but he has not noticed a difference at this time. Review of Systems A 14 point review of systems assessed and completed and all negative except HPI Past Medical History Past Medical History: Cancer, Hyperlipidemia Additional Past Medical History / Comment(s): prostate cancer, throat cancer History of Any Multi-Drug Resistant Organisms: None Reported Past Surgical History: Prostate Surgery Additional Past Surgical History / Comment(s): colonoscopy. PROSTATECTOMY Past Anesthesia/Blood Transfusion Reactions: No Reported Reaction Past Psychological History: Anxiety Smoking Status: Never smoker Past Alcohol Use History: None Reported Past Drug Use History: None Reported - Past Family History Mother Family Medical History: No Reported History Medications and Allergies Home Medications Medication Instructions Recorded Confirmed Type Hydrocodone/Acetaminophen [[place] 1 tab PO QID PRN 03/13/18 04/04/18 History 10-325] LORazepam [Ativan] 0.5 mg PO QID 04/04/18 04/04/18 History Multivitamins, Thera [Multivitamin 1 tab PO DAILY 04/04/18 04/04/18 History (formulary)] Ondansetron Odt [Zofran Odt] 8 mg PO Q4H PRN 04/04/18 04/04/18 History Pantoprazole [Protonix] 40 mg PO DAILY 04/04/18 04/04/18 History fentaNYL 12MCG/HR PATCH [Duragesic 1 patch TRANSDERM Q72H 04/04/18 04/04/18 History 12MCG/HR] Allergies Allergy/AdvReac Type Severity Reaction Status Date / Time No Known Allergies Allergy Verified 04/04/18 10:40 Physical Exam Vitals: Vital Signs Temp Pulse Pulse Resp BP BP Pulse Ox 04/05/18 08:00 90 16 04/05/18 04:50 98.2 F 90 16 131/69 97 04/04/18 23:45 16 04/04/18 19:57 97.9 F 86 16 147/70 94 L 04/04/18 16:00 91 16 04/04/18 15:00 98.1 F 91 16 128/81 98 04/04/18 14:07 98.9 F 90 18 133/79 98 04/04/18 13:30 98.7 F 87 16 134/73 98 04/04/18 13:20 86 18 134/73 98 04/04/18 13:10 84 17 134/73 98 04/04/18 13:00 85 14 141/72 98 04/04/18 12:50 86 15 141/72 99 04/04/18 12:40 83 18 141/72 98 04/04/18 12:30 92 16 139/74 98 04/04/18 12:20 87 17 139/74 99 04/04/18 12:10 89 16 139/74 98 04/04/18 12:00 94 14 125/74 100 04/04/18 11:54 96 21 125/74 99 Intake and Output 04/04/18 04/05/18 04/05/18 22:59 06:59 14:59 Intake Total 520 800 Balance 520 800 Intake: Intake, IV Titration 400 800 Amount Sodium Chloride 0.9% 1, 400 800 000 ml @ 100 mls/hr IV . Q10H [facility]MAN Rx#:[id number] Oral 120 Other: # Voids 1 1 Gen: Alert and oriented, no acute distress. Head NC, NT Neck: Dry flaking skin on bilateral neck, discolorization from radiation. Mouth: Erythema,scattered thrush, and areas of edema in posterior pharynx. Lungs: CTA bilateral, no increased effort Abdomen: soft nondistended, non tender Heart Tachy regular No palpable adenopathy Extremities no edema Results CBC & Chem 7: 04/05/18 06:25 04/05/18 06:25 Labs: Abnormal Lab Results - Last 24 Hours (Table) 04/04/18 04/05/18 Range/Units 12:00 06:25 WBC 2.1 L 1.8 L (3.8-10.6) k/uL RBC 2.71 L 2.65 L (4.30-5.90) m/uL Hgb 8.6 L D 8.3 L (13.0-17.5) gm/dL Hct 24.3 L 23.9 L (39.0-53.0) % RDW 17.4 H 17.4 H (11.5-15.5) % Neutrophils # (Manual) 1.00 L (1.3-7.7) k/uL Lymphocytes # (Manual) 0.40 L 0.36 L (1.0-4.8) k/uL Chest x-ray: report reviewed Abdominal x-ray: report reviewed Assessment and Plan Plan: Assessment and Recommendations: 1. 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 Unable to tolerate PO Intake:Pain from tx - 14lb weight loss in 2 weeks - Secondary to post treatment Mucocytitis - Possible secondary fungal and viral component - A consult has been placed for Dr. Malloy for Feeding tube for adequate nutrition - Increased fentanyl 50mcg 3. Leukopenia/neutropenia - Hawthorne cultures - Acyclovir and diflucan - Add Zarxio (Discussed with Dr. Gonzalez and Patient and ) 4. Normocytic anemia: secondary to chemo and nutritional - Iron, B12, and folate levels 5. Pain secondary to effects of treatment and possible secondary infection - Continue PRN Pain medications - Viscous Lidocaine - ALthough refusing any PO topical as it garcia - Dex 2mg IV q12 - discussed with Dr. Gonzalez - Protonix IVP BID 6. COnstipation: - Bowel Regimen Senna-s BID - No rectal supp until WBC improves Plan: - Aggressive supportive and symptom managment Thank you for allowing us to participate in his care. Greater than 45 minutes spent face to face with patient and and case discussed with Radiation oncology in detail. Physician Attest: THe complete physical and history was discussed and I devloped the complete impression and plan, agree with dictation, dictated as scribe.
[2018-04-05] MEDS ORDERED: MULTIVITAMINS, THERA 1 EACH TAB PO SCH (12:00)
[2018-04-05 12:45] LABS: Magnesium 1.8 mg/dL (1.6-2.3); Phosphorus 3.6 mg/dL (2.5-4.5); Reticulocyte % 2.7 % (0.5-2.0)
[2018-04-05] MEDS: SODIUM CHLORIDE 0.9% 1,000 ML IV SCH ×2 (13:03→20:02)
[2018-04-05 13:38] LABS: Appearance,Urine Clear (Clear); Bilirubin,Urine Negative (Negative); Blood,Urine Negative (Negative); Color,Urine Yellow; Glucose,Urine (UA) Negative (Negative); Ketones,Urine 2+ (Negative); Leukocyte Esterase,Urine Negative (Negative); Nitrite,Urine Negative (Negative); Protein,Urine Trace (Negative); Specific Gravity,Urine 1.017 (1.001-1.035); Urobilinogen,Urine <2.0 mg/dL (<2.0)
[2018-04-05] MEDS ORDERED: PETROLATUM, WHITE OINT 50 GM TUBE TOPICAL PRN (18:12)
[2018-04-05] MEDS ORDERED: LIDOCAINE VISCOUS 2% 15 ML CUP MUCOUS MEM PRN (18:13)
[2018-04-05] MEDS: DEXAMETHASONE SOD PHOSPHATE 4 MG/ML 1 ML VIAL IV SCH (20:01)
[2018-04-05] MEDS: ACYCLOVIR SODIUM 500 MG in SODIUM CHLORIDE 0.9% 100 ML IVPB SCH (20:02)
[2018-04-05] MEDS: FLUCONAZOLE IN NACL,ISO-OSM 100 MG in SALINE 1 50ML.BAG IVPB SCH (20:02)
[2018-04-05] MEDS ORDERED: LORATADINE 10 MG TAB PO STA (21:38)
[2018-04-05] MEDS: TRIAMCINOLONE ACET 0.5% CREAM 15 GM TUBE TOPICAL SCH (22:10)
[2018-04-05] MEDS: FILGRASTIM-SNDZ 480 MCG/0.8 ML SYRINGE SQ SCH (22:11)
[2018-04-05] MEDS: SENNOSIDES-DOCUSATE SODIUM 1 EACH TAB PO SCH (22:18)
[2018-04-06] MEDS: HEPARIN SODIUM,PORCINE 5,000 UNIT/ML 1 ML VIAL SQ SCH ×3 (00:27→15:30)
--- NOTE | 2018-04-06 01:29 | P.PN ---
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 As per his patient has not been eating solid diet at all for the past 6 weeks. Patient not able to tolerate liquids as well. Patient also having burning pain in the throat and tried multiple medications without much relief. Patient was sent to the hospital by his radiation oncology physician. Chest x-ray showed no acute cardio pulmonary process KUB x-ray showed no acute intra-abdominal process. WBC 2.1 and hemoglobin 8.6 and BUN 23 04/05/2018 Patient is still complaining of throat pain. Not able to take liquids as well. Otherwise no complaints of chest pain or shortness of breath. Gen. surgery was consulted for PEG tube placement. Otherwise patient is being continued on IV hydration. No acute overnight issues. WBC 1.8 and hemoglobin 8.3 Current medications reviewed. Objective - Vital Signs Vital signs: Vital Signs Temp 99 F 04/05/18 21:50 Pulse 63 04/05/18 21:50 Resp 17 04/05/18 21:50 BP 153/68 04/05/18 21:50 Pulse Ox 97 04/05/18 21:50 Intake & Output 04/05/18 04/05/18 04/06/18 06:59 18:59 06:59 Intake Total 1320 800 Balance 1320 800 Intake: Intake, IV Titration 1200 800 Amount Sodium Chloride 0.9% 1, 1200 800 000 ml @ 100 mls/hr IV . Q10H [facility] Rx#:[id number] Oral 120 Other: # Voids 1 1 - Exam PHYSICAL EXAMINATION: Patient is lying in the bed comfortably, no acute distress, awake alert and oriented.. HEENT: Normocephalic. Neck is supple. Pupils reactive. Nostrils clear. Oral cavity is moist. Ears reveal no drainage. Neck reveals no JVD, carotid bruits, or thyromegaly. CHEST EXAMINATION: Trachea is central. Symmetrical expansion. Lung calhoun clear to auscultation and percussion. CARDIAC: Normal S1, S2 with no gallops. No murmurs ABDOMEN: Soft. Bowel sounds normal. No organomegaly. No abdominal bruits. Extremities: reveal no edema. No clubbing or cyanosis Neurologically awake, alert, oriented x3 with well-coordinated movements. No focal deficits noted Skin: No rash or skin lesions. Psychiatric: Coperative. Nonsuicidal Musculoskeletal: No joint swelling or deformity. Normal range of motion. - Labs CBC & Chem 7: 04/05/18 06:25 04/05/18 06:25 Labs: Abnormal Lab Results - Last 24 Hours (Table) 04/05/18 04/05/18 04/05/18 Range/Units 06:25 12:05 13:05 WBC 1.8 L (3.8-10.6) k/uL RBC 2.65 L (4.30-5.90) m/uL Hgb 8.3 L (13.0-17.5) gm/dL Hct 23.9 L (39.0-53.0) % RDW 17.4 H (11.5-15.5) % Neutrophils # (Manual) 1.00 L (1.3-7.7) k/uL Lymphocytes # (Manual) 0.36 L (1.0-4.8) k/uL Retic Count 2.7 H (0.5-2.0) % Urine Protein Trace H (Negative) Urine Ketones 2+ H (Negative) Assessment and Plan Assessment: Nausea vomiting and unable to tolerate oral diet due to recent history of radiation 3 days ago Throat cancer status post chemotherapy 2 weeks ago and radiation 3 days ago History of prostate cancer status post prostatectomy Anxiety neutropenia with WBC 2.1--1.8 due to chemotherapy. DVT prophylaxis Plan: Patient will be continued on IV fluids. Continue with liquid diet as tolerated. Continue with Zofran when necessary for nausea and vomiting along with Pepcid IV. Started on cool solution. Oncology and radiation oncology was consulted. Continue with symptomatic management and further recommendations based on the clinical course. Discussed with the patient and his at bedside in detail. Time with Patient: Greater than 30
[2018-04-06] MEDS: ACYCLOVIR SODIUM 500 MG in SODIUM CHLORIDE 0.9% 100 ML IVPB SCH ×3 (01:35→15:30)
[2018-04-06 07:39] LABS: Anisocytosis Slight; Basophils % (A) 0 %; Eosinophils % (A) 0 %; HCT 24.1 % (39.0-53.0); HGB 8.2 gm/dL (13.0-17.5); Lymphocytes # (A) 0.3 k/uL (1.0-4.8); Lymphocytes % (A) 6 %; MCH 30.8 pg (25.0-35.0); MCHC 34.1 g/dL (31.0-37.0); MCV 90.2 fL (80.0-100.0); Mean Platelet Volume 6.7; Monocytes # (A) 0.4 k/uL (0-1.0); Monocytes % (A) 9 %; Neutrophils # (A) 3.8 k/uL (1.3-7.7); Neutrophils % (A) 82 %; Platelet Count 219 k/uL (150-450); RBC 2.68 m/uL (4.30-5.90); RDW 16.6 % (11.5-15.5); WBC 4.6 k/uL (3.8-10.6)
[2018-04-06] MEDS: HYDROmorphone 1 MG/ML 1 ML SYRINGE IVP PRN ×3 (07:58→17:31)
[2018-04-06] MEDS: PANTOPRAZOLE 40 MG/10 ML VIAL IVP SCH ×2 (07:59→22:13)
[2018-04-06] MEDS: LORazepam 0.5 MG TAB PO SCH ×4 (07:59→22:12)
[2018-04-06] MEDS: TRIAMCINOLONE ACET 0.5% CREAM 15 GM TUBE TOPICAL SCH ×2 (07:59→22:15)
[2018-04-06] MEDS: SODIUM CHLORIDE 0.9% 1,000 ML IV SCH ×3 (08:01→22:15)
[2018-04-06] MEDS: SENNOSIDES-DOCUSATE SODIUM 1 EACH TAB PO SCH ×2 (08:01→22:13)
[2018-04-06] MEDS: DEXAMETHASONE SOD PHOSPHATE 4 MG/ML 1 ML VIAL IV SCH ×2 (08:01→22:13)
[2018-04-06] MEDS: MAG HYDROX/AL HYDROX/SIMETH 30 ML, LIDOCAINE VISCOUS 30 ML, diphenhydrAMINE ELIXIR 75 M... PO SCH ×12 (08:02→22:14)
[2018-04-06 09:48] LABS: Iron Saturation 9.41 (15.00-50.00)
[2018-04-06] MEDS: KETOROLAC 30 MG/ML 1 ML VIAL IVP PRN ×2 (10:00→15:34)
--- NOTE | 2018-04-06 11:21 | P.GSCN ---
<Mary Beverly - Last Filed: 04/06/18 11:10> History of Present Illness Consult date: 04/06/18 Reason for Consult: peg tube Requesting physician: Chelsi Collins History of present illness: CHIEF COMPLAINT: inability to swallow. peg tube placement HISTORY OF PRESENT ILLNESS: 57-year-old male with a history of squamous cell carcinoma of the throat and tongue admitted to the hospital for nausea and weakness. Patient reports he has been unable to tolerate PO intake for the last two weeks. He reports difficulties dating back 5 weeks but was able to tolerate Ensure drinks at that time. Patient reports weight loss of around 20 pounds. General surgery was consulted for placement of PEG tube. PAST MEDICAL HISTORY: See list. PAST SURGICAL HISTORY: See list. MEDICATIONS: See list. ALLERGIES: See list. SOCIAL HISTORY: No illicit drug use. REVIEW OF SYSTEMS: CONSTITUTIONAL: Denies fever or chills. HEENT: Denies blurred vision, vision changes, or eye pain. Reports inability to tolerate PO intake. ENDOCRINE: Denies heat or cold intolerance. CARDIOVASCULAR: Denies chest pain or pressure. RESPIRATORY: No shortness of breath. GASTROINTESTINAL: Denies abdominal pain. NEURO: Denies history of seizures. PSYCH: No depression or suicidal ideation HEMATOLOGIC: Denies bleeding disorders. GENITOURINARY: Denies any blood in urine or increased urinary frequency. MUSCULOSKELETAL: Denies myalgias. Denies joint swelling. Denies decreased range of motion beyond patients baseline. SKIN: Denies pruitis. Denies rash. PHYSICAL EXAM: VITAL SIGNS: Currently stable. GENERAL: Well-developed in no acute distress. HEENT: No sclera icterus. Extraocular movements grossly intact. Moist buccal mucosa with scattered thrush. Head is atraumatic, normocephalic. Hears conversational speech. No nasal drainage. CHEST: Non-labored respirations and equal bilateral excursions. CARDIOVASCULAR: Regular rate with regular rhythm. Palpable 2+ radial pulses. ABDOMEN: Soft. Nondistended. Nontender. MUSCULOSKELETAL: No clubbing, cyanosis or edema. NEUROLOGIC: No focal or lateralizing signs. Cranial nerves II through XII grossly intact. PSYCH: Appropriate affect. Alert and oriented to person, place and time. SKIN: Well perfused. Good skin turgor. ASSESSMENT: 1. 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 Inability to tolerate PO intake, secondary to above 3. Unintentional weight loss, 20 lbs, secondary to # 1 and 2 PLAN: 1. NPO 2. Continue IV fluids 3. Patient to undergo PEG tube placement this afternoon by Dr. Malloy. Patient and agreeable. Nurse practitioner note has been reviewed by physician. Signing provider agrees with the documented findings, assessment, and plan of care. Past Medical History Past Medical History: Cancer, Hyperlipidemia Additional Past Medical History / Comment(s): prostate cancer, throat cancer History of Any Multi-Drug Resistant Organisms: None Reported Past Surgical History: Prostate Surgery Additional Past Surgical History / Comment(s): colonoscopy. PROSTATECTOMY Past Anesthesia/Blood Transfusion Reactions: No Reported Reaction Past Psychological History: Anxiety Smoking Status: Never smoker Past Alcohol Use History: None Reported Past Drug Use History: None Reported - Past Family History Mother Family Medical History: No Reported History Medications and Allergies Home Medications Medication Instructions Recorded Confirmed Type Hydrocodone/Acetaminophen [[place] 1 tab PO QID PRN 03/13/18 04/04/18 History 10-325] LORazepam [Ativan] 0.5 mg PO QID 04/04/18 04/04/18 History Multivitamins, Thera [Multivitamin 1 tab PO DAILY 04/04/18 04/04/18 History (formulary)] Ondansetron Odt [Zofran Odt] 8 mg PO Q4H PRN 04/04/18 04/04/18 History Pantoprazole [Protonix] 40 mg PO DAILY 04/04/18 04/04/18 History fentaNYL 12MCG/HR PATCH [Duragesic 1 patch TRANSDERM Q72H 04/04/18 04/04/18 History 12MCG/HR] Allergies Allergy/AdvReac Type Severity Reaction Status Date / Time No Known Allergies Allergy Verified 04/04/18 10:40 Surgical - Exam Vital Signs Temp Pulse Resp BP Pulse Ox 98.3 F 96 18 118/75 97 04/04/18 10:05 04/04/18 10:05 04/04/18 10:05 04/04/18 10:05 04/04/18 10:05 Results - Labs 04/06/18 07:14 04/05/18 06:25 Abnormal Lab Results - Last 24 Hours (Table) 04/05/18 04/05/18 04/05/18 Range/Units 12:05 12:05 13:05 RBC (4.30-5.90) m/uL Hgb (13.0-17.5) gm/dL Hct (39.0-53.0) % RDW (11.5-15.5) % Lymphocytes # (1.0-4.8) k/uL Retic Count 2.7 H (0.5-2.0) % Iron 19 L (65-175) ug/dL TIBC 202 L (228-460) ug/dL Iron Saturation 9.41 L (15.00-50.00) Ferritin 1136.8 H (22.0-322.0) ng/mL Urine Protein Trace H (Negative) Urine Ketones 2+ H (Negative) 04/06/18 Range/Units 07:14 RBC 2.68 L (4.30-5.90) m/uL Hgb 8.2 L (13.0-17.5) gm/dL Hct 24.1 L (39.0-53.0) % RDW 16.6 H (11.5-15.5) % Lymphocytes # 0.3 L (1.0-4.8) k/uL Retic Count (0.5-2.0) % Iron (65-175) ug/dL TIBC (228-460) ug/dL Iron Saturation (15.00-50.00) Ferritin (22.0-322.0) ng/mL Urine Protein (Negative) Urine Ketones (Negative) Calcium panel 04/05/18 Range/Units 12:05 Phosphorus 3.6 (2.5-4.5) mg/dL <José Manuel Malloy - Last Filed: 04/06/18 17:58> History of Present Illness History of present illness: As above. We'll proceed with EGD and planned PEG tube placement. Risks of the procedure were reviewed with the patient and his . Risks of bleeding, infection, inability to place catheter, bowel injury, abscess, perforation reviewed. They understand and wish to proceed. Surgical - Exam Vital Signs Temp Pulse Resp BP Pulse Ox 98.3 F 96 18 118/75 97 04/04/18 10:05 04/04/18 10:05 04/04/18 10:05 04/04/18 10:05 04/04/18 10:05 Results - Labs 04/06/18 07:14 04/05/18 06:25 Abnormal Lab Results - Last 24 Hours (Table) 04/05/18 04/06/18 Range/Units 12:05 07:14 RBC 2.68 L (4.30-5.90) m/uL Hgb 8.2 L (13.0-17.5) gm/dL Hct 24.1 L (39.0-53.0) % RDW 16.6 H (11.5-15.5) % Lymphocytes # 0.3 L (1.0-4.8) k/uL Iron 19 L (65-175) ug/dL TIBC 202 L (228-460) ug/dL Iron Saturation 9.41 L (15.00-50.00) Ferritin 1136.8 H (22.0-322.0) ng/mL Microbiology - Last 24 Hours (Table) 04/05/18 12:25 Blood Culture - Preliminary Blood No Growth after 24 hours 04/05/18 12:05 Blood Culture - Preliminary Blood No Growth after 24 hours
--- NOTE | 2018-04-06 16:45 | P.PN ---
Subjective Progress Note Date: 04/06/18 Principal diagnosis: Squamous cell head/neck, completed Tx 03/20 In f/u pt dysphagia, odynophagia persist, PEG is planned for today. Objective - Vital Signs Vital signs: Vital Signs Temp 97.9 F 04/06/18 11:18 Pulse 80 04/06/18 11:18 Resp 16 04/06/18 11:18 BP 153/71 04/06/18 11:18 Pulse Ox 97 04/06/18 11:18 Intake & Output 04/05/18 04/06/18 04/06/18 18:59 06:59 18:59 Intake Total 800 2030 800 Balance 800 2030 800 Weight 88.451 kg Intake: Intake, IV Titration 800 1450 800 Amount Acyclovir Sodium 500 mg 200 100 In Sodium Chloride 0.9% 100 ml @ 100 mls/hr IVPB Q8HR [facility] Rx#:[id number] Fluconazole in NaCl,Iso- 50 Osm 100 mg In Saline 1 50ml.bag @ 50 mls/hr IVPB DAILY@1800 [facility] Rx#: [id number] Sodium Chloride 0.9% 1, 800 1200 700 000 ml @ 100 mls/hr IV . Q10H [facility] Rx#:[id number] Oral 580 Other: # Voids 1 1 - Constitutional General appearance: Present: average body habitus, cooperative, no acute distress - EENT EENT Comment(s): posterior oropharynx redness, otherwise oral mucosa is normlal, radiation skin changes to anterior neck, no blisters or open sores Eyes: Present: anicteric sclerae, EOMI ENT: Present: hearing grossly normal - Respiratory Respiratory: bilateral: CTA - Cardiovascular Heart sounds: normal: S1, S2 Abnormal Heart Sounds: Absent: systolic murmur, diastolic murmur, rub, S3 Gallop , S4 Gallop, click, other - Peripheral edema leg Peripheral Edema: bilateral: None - Gastrointestinal General gastrointestinal: Present: normal bowel sounds, soft. Absent: absent bowel sounds, decreased bowel sounds, distended, hepatomegaly, hyperactive bowel sounds, organomegaly, rigid, scaphoid, splenomegaly, tenderness, umbilical hernia, ventral hernia - Integumentary Integumentary: Present: pale - Neurologic Neurologic: Present: CNII-XII intact - Musculoskeletal Musculoskeletal: Present: generalized weakness, strength equal bilaterally - Psychiatric Psychiatric: Present: A&O x's 3, appropriate affect, intact judgment & insight - Labs CBC & Chem 7: 04/06/18 07:14 04/05/18 06:25 Labs: Abnormal Lab Results - Last 24 Hours (Table) 04/05/18 04/06/18 Range/Units 12:05 07:14 RBC 2.68 L (4.30-5.90) m/uL Hgb 8.2 L (13.0-17.5) gm/dL Hct 24.1 L (39.0-53.0) % RDW 16.6 H (11.5-15.5) % Lymphocytes # 0.3 L (1.0-4.8) k/uL Iron 19 L (65-175) ug/dL TIBC 202 L (228-460) ug/dL Iron Saturation 9.41 L (15.00-50.00) Ferritin 1136.8 H (22.0-322.0) ng/mL Microbiology - Last 24 Hours (Table) 04/05/18 12:25 Blood Culture - Preliminary Blood No Growth after 24 hours 04/05/18 12:05 Blood Culture - Preliminary Blood No Growth after 24 hours Assessment and Plan (1) Odynophagia Current Visit: Yes Status: Acute Priority: High Code(s): R13.10 - DYSPHAGIA, UNSPECIFIED SNOMED Code(s): 92726249 (2) Dysphagia Current Visit: Yes Status: Acute Priority: High Code(s): R13.10 - DYSPHAGIA, UNSPECIFIED SNOMED Code(s): 05201327 (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 He will have f/u images and ENT evaluation for visualization of area once the side effects of treatment are resolved. Pt is 17 days out from completion of treatment. Current Visit: Yes Status: Chronic Priority: Medium Code(s): C76.0 - MALIGNANT NEOPLASM OF HEAD, FACE AND NECK SNOMED Code(s): 309376459 (4) Anemia Narrative/Plan: From work up it appears anemia is more related to inflammation, ferritin is extraordinarily elevated(>1000) with low iron studies otherwise. No treatment planned at this time. Transfuse for Hgb<7. Current Visit: Yes Status: Acute Priority: Medium Code(s): D64.9 - ANEMIA , UNSPECIFIED SNOMED Code(s): 445304915 Plan: Dysphagia and odynophagia are secondary to chemo/radiation treatment for Sq cell head/neck. Side effects such as this are unfortunately common but are typically self limiting and tend to resolve in about 4-6 weeks. PEG tube is being placed to supplement diet as pt is experiencing wt. loss and without the proper nutrition healing will be compromised and prolonged putting him at increased risk for infection. Pt was encouraged to sips of fluids to keep the muscles of the esophagus moving to prevent weakening of the muscles. He and his verbalized understanding DrAshvin Attests: I have performed H&P and developed impression and plan of care of patient, discussed with dictator. I agree with dictated note, documented as a scribe.
[2018-04-06] MEDS: FLUCONAZOLE IN NACL,ISO-OSM 100 MG in SALINE 1 50ML.BAG IVPB SCH (17:30)
[2018-04-06] MEDS ORDERED: fentaNYL (PF) 50 MCG/ML 2 ML AMP ONE (17:46)
[2018-04-06] MEDS ORDERED: LIDOCAINE 1% INJ 10MG/ML (20 ML MDV) ONE (17:46)
[2018-04-06] MEDS ORDERED: MIDAZOLAM 2 MG/2 ML VIAL ONE (17:46)
[2018-04-06] MEDS ORDERED: PROPOFOL 10 MG/ML 20 ML VIAL IV ONE (17:46)
[2018-04-06] MEDS ORDERED: IV FLUID CONTINUATION 1,000 ML IV ONE (17:50)
[2018-04-06 19:22] LABS: Glucose,Whole Blood 112 mg/dL (75-99)
[2018-04-06] MEDS: FILGRASTIM-SNDZ 480 MCG/0.8 ML SYRINGE SQ SCH (22:13)
[2018-04-07] MEDS: ACYCLOVIR SODIUM 500 MG in SODIUM CHLORIDE 0.9% 100 ML IVPB SCH ×2 (00:39→08:13)
[2018-04-07] MEDS: HEPARIN SODIUM,PORCINE 5,000 UNIT/ML 1 ML VIAL SQ SCH ×2 (00:39→09:57)
--- NOTE | 2018-04-07 01:28 | P.PN ---
Subjective Progress Note Date: 04/06/18 Principal diagnosis: throat cancer status post radiation recently Throat pain and unable to tolerate oral diet This a 57-year-old male with a history of hyperlipidemia, prostate cancer status post prostatectomy and recently diagnosed throat and posterior tongue cancer who is had a total of 35 radiation treatments last one being 3 days ago and last chemo 2 weeks ago presented to ER due to decreased oral intake and nausea and vomiting and unable to tolerate oral diet. As per his patient has not been eating solid diet at all for the past 6 weeks. Patient not able to tolerate liquids as well. Patient also having burning pain in the throat and tried multiple medications without much relief. Patient was sent to the hospital by his radiation oncology physician. In f/u pt dysphagia, odynophagia persist, PEG is planned for today. Objective - Vital Signs Vital signs: Vital Signs Temp 98.1 F 04/06/18 07:31 Pulse 86 04/06/18 07:31 Resp 16 04/06/18 07:31 BP 141/63 04/06/18 07:31 Pulse Ox 97 04/06/18 07:31 Intake & Output 04/05/18 04/06/18 04/06/18 18:59 06:59 18:59 Intake Total 800 2030 Balance 800 2030 Intake: Intake, IV Titration 800 1450 Amount Acyclovir Sodium 500 mg 200 In Sodium Chloride 0.9% 100 ml @ 100 mls/hr IVPB Q8HR [facility] Rx#:[id number] Fluconazole in NaCl,Iso- 50 Osm 100 mg In Saline 1 50ml.bag @ 50 mls/hr IVPB DAILY@1800 [facility] Rx#: [id number] Sodium Chloride 0.9% 1, 800 1200 000 ml @ 100 mls/hr IV . Q10H [facility] Rx#:[id number] Oral 580 Other: # Voids 1 1 - Exam Patient is lying in the bed comfortably, no acute distress, awake alert and oriented.. HEENT: Normocephalic. Neck is supple. Pupils reactive. Nostrils clear. Oral cavity is moist. Ears reveal no drainage. Neck reveals no JVD, carotid bruits, or thyromegaly. CHEST EXAMINATION: Trachea is central. Symmetrical expansion. Lung calhoun clear to auscultation and percussion. CARDIAC: Normal S1, S2 with no gallops. No murmurs ABDOMEN: Soft. Bowel sounds normal. No organomegaly. No abdominal bruits. Extremities: reveal no edema. No clubbing or cyanosis Neurologically awake, alert, oriented x3 with well-coordinated movements. No focal deficits noted Skin: No rash or skin lesions. Psychiatric: Coperative. Nonsuicidal Musculoskeletal: No joint swelling or deformity. Normal range of motion. - Labs CBC & Chem 7: 04/06/18 07:14 04/05/18 06:25 Labs: Abnormal Lab Results - Last 24 Hours (Table) 04/05/18 04/05/18 04/05/18 Range/Units 12:05 12:05 13:05 RBC (4.30-5.90) m/uL Hgb (13.0-17.5) gm/dL Hct (39.0-53.0) % RDW (11.5-15.5) % Lymphocytes # (1.0-4.8) k/uL Retic Count 2.7 H (0.5-2.0) % Iron 19 L (65-175) ug/dL TIBC 202 L (228-460) ug/dL Iron Saturation 9.41 L (15.00-50.00) Ferritin 1136.8 H (22.0-322.0) ng/mL Urine Protein Trace H (Negative) Urine Ketones 2+ H (Negative) 04/06/18 Range/Units 07:14 RBC 2.68 L (4.30-5.90) m/uL Hgb 8.2 L (13.0-17.5) gm/dL Hct 24.1 L (39.0-53.0) % RDW 16.6 H (11.5-15.5) % Lymphocytes # 0.3 L (1.0-4.8) k/uL Retic Count (0.5-2.0) % Iron (65-175) ug/dL TIBC (228-460) ug/dL Iron Saturation (15.00-50.00) Ferritin (22.0-322.0) ng/mL Urine Protein (Negative) Urine Ketones (Negative) Assessment and Plan Assessment: Nausea vomiting and unable to tolerate oral diet due to recent history of radiation 3 days ago Throat cancer status post chemotherapy 2 weeks ago and radiation 3 days ago History of prostate cancer status post prostatectomy Anxiety neutropenia with WBC 2.1--1.8 due to chemotherapy. DVT prophylaxis Plan: Patient will be continued on IV fluids. Continue with liquid diet as tolerated. Continue with Zofran when necessary for nausea and vomiting along with Pepcid IV. Started on cool solution. Oncology and radiation oncology was consulted. Continue with symptomatic management and further recommendations based on the clinical course. Gen. surgery is consulted for PEG tube placement Time with Patient: Greater than 30
[2018-04-07] MEDS: SODIUM CHLORIDE 0.9% 1,000 ML IV SCH (06:06)
--- NOTE | 2018-04-07 07:47 | PCN ---
PROCEDURE NOTE DATE OF SERVICE: 04/06/2018. PREOPERATIVE DIAGNOSIS: Malnutrition. POSTOPERATIVE DIAGNOSIS: Malnutrition. PROCEDURE: EGD with PEG tube placement. ANESTHESIA: Sedation. SURGEON: Dr. Malloy. COMPLICATIONS: None. OPERATIVE PROCEDURE: The patient was brought and placed on the operating room table in a supine position. The patient was sedated per Anesthesia. At that time the gastroscope was inserted. The was then passed. Under direct visualization in the region of the third portion of the duodenum, there was no evidence of obstruction of the duodenum. The scope was withdrawn. Pylorus was widely patent. The stomach was inspected. Minimal gastritis was seen. The transillumination was set on the scope. We were able to see this light shining in the left subcostal location. Digital palpation of the anterior wall of the abdomen provided nice dimpling of the anterior wall of the stomach. This site was chosen for PEG tube placement. The skin was localized and prepped. A small vertical incision was made using the scalpel. The Seldinger needle was advanced into the stomach. The wire was then advanced. The wire was grasped with the endoscopic snare and pulled through the oropharynx. The catheter was threaded over the guidewire and the guidewire was pulled through the anterior abdominal wall. The circular bolster was applied. A small amount of bleeding was identified from our incision site superficially right on the skin level. This stopped once the bolster was applied. The bolster was at 2.5 to 3 cm. The dual port feeding adapter was applied. Sterile dressings were applied. The patient's esophagus had mild inflammation, but overall quite minimal. PLAN: Begin tube feeds tomorrow. MMODL / IJN: [id number] /
[2018-04-07] MEDS: DEXAMETHASONE SOD PHOSPHATE 4 MG/ML 1 ML VIAL IV SCH (08:13)
[2018-04-07] MEDS: HYDROmorphone 1 MG/ML 1 ML SYRINGE IVP PRN (08:23)
[2018-04-07] MEDS: KETOROLAC 30 MG/ML 1 ML VIAL IVP PRN (08:29)
[2018-04-07 09:15] LABS: Anisocytosis Slight; HGB 9.1 gm/dL (13.0-17.5); MCH 30.5 pg (25.0-35.0); MCHC 33.5 g/dL (31.0-37.0); MCV 90.9 fL (80.0-100.0); Mean Platelet Volume 6.8; Platelet Count 234 k/uL (150-450); RBC 2.97 m/uL (4.30-5.90); RDW 17.1 % (11.5-15.5); WBC 8.1 k/uL (3.8-10.6)
[2018-04-07 09:31] LABS: Anion Gap 6 mmol/L; Blood Urea Nitrogen 18 mg/dL (9-20); Calcium 8.6 mg/dL (8.4-10.2); Carbon Dioxide 28 mmol/L (22-30); Chloride 105 mmol/L (98-107); Glucose 90 mg/dL (74-99); Potassium 4.3 mmol/L (3.5-5.1); Sodium 139 mmol/L (137-145)
[2018-04-07] MEDS: MAG HYDROX/AL HYDROX/SIMETH 30 ML, LIDOCAINE VISCOUS 30 ML, diphenhydrAMINE ELIXIR 75 M... PO SCH ×4 (09:54)
[2018-04-07] MEDS: LORazepam 0.5 MG TAB PO SCH ×2 (09:57→12:47)
[2018-04-07] MEDS: SENNOSIDES-DOCUSATE SODIUM 1 EACH TAB PO SCH (09:57)
[2018-04-07] MEDS: TRIAMCINOLONE ACET 0.5% CREAM 15 GM TUBE TOPICAL SCH (09:58)
--- NOTE | 2018-04-07 10:54 | P.PN ---
<Mary Beverly A - Last Filed: 04/07/18 10:51> Subjective Progress Note Date: 04/07/18 CHIEF COMPLAINT: inability to swallow. peg tube placement HISTORY OF PRESENT ILLNESS: Patient examined at the bedside. S/P PEG tube placement. POD #1. Patient denies abdominal pain. Denies nausea or vomiting. WBC 8.1. Hemoglobin 9.1. PHYSICAL EXAM: VITAL SIGNS: Currently stable. GENERAL: Well-developed in no acute distress. HEENT: No sclera icterus. Extraocular movements grossly intact. Moist buccal mucosa with scattered thrush. Head is atraumatic, normocephalic. Hears conversational speech. No nasal drainage. CHEST: Non-labored respirations and equal bilateral excursions. CARDIOVASCULAR: Regular rate with regular rhythm. Palpable 2+ radial pulses. ABDOMEN: Soft. Nondistended. Nontender. PEG tube intact without drainage or surrounding erythema. MUSCULOSKELETAL: No clubbing, cyanosis or edema. NEUROLOGIC: No focal or lateralizing signs. Cranial nerves II through XII grossly intact. PSYCH: Appropriate affect. Alert and oriented to person, place and time. SKIN: Well perfused. Good skin turgor. ASSESSMENT: 1. 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 Inability to tolerate PO intake, secondary to above 3. Unintentional weight loss, 20 lbs, secondary to # 1 and 2 4. Status post PEG tube insertion, 04/06/2018 PLAN: Dietitian has been consulted for tube feeding recommendations. Begin tube feeding after dietary recommendations received. Patient is stable from a surgical perspective. Nurse practitioner note has been reviewed by physician. Signing provider agrees with the documented findings, assessment, and plan of care. Objective - Vital Signs Vital signs: Vital Signs Temp 97.5 F L 04/07/18 05:00 Pulse 83 04/07/18 05:00 Resp 16 04/07/18 05:00 BP 120/64 04/07/18 05:00 Pulse Ox 97 04/07/18 05:00 Intake & Output 04/06/18 04/07/18 04/07/18 18:59 06:59 18:59 Intake Total 1050 1050 Balance 1050 1050 Weight 88.451 kg 88.451 kg Intake: IV 250 Intake, IV Titration 800 1050 Amount Acyclovir Sodium 500 mg 100 100 In Sodium Chloride 0.9% 100 ml @ 100 mls/hr IVPB Q8HR [facility] Rx#:[id number] Fluconazole in NaCl,Iso- 50 Osm 100 mg In Saline 1 50ml.bag @ 50 mls/hr IVPB DAILY@1800 [facility] Rx#: [id number] Sodium Chloride 0.9% 1, 700 900 000 ml @ 100 mls/hr IV . Q10H [facility] Rx#:[id number] Other: Voiding Method Toilet Toilet # Voids 1 - Labs CBC & Chem 7: 04/07/18 08:40 04/07/18 08:40 Labs: Abnormal Lab Results - Last 24 Hours (Table) 04/06/18 04/07/18 Range/Units 19:20 08:40 RBC 2.97 L (4.30-5.90) m/uL Hgb 9.1 L (13.0-17.5) gm/dL Hct 27.0 L (39.0-53.0) % RDW 17.1 H (11.5-15.5) % POC Glucose (mg/dL) 112 H (75-99) mg/dL Microbiology - Last 24 Hours (Table) 04/05/18 12:25 Blood Culture - Preliminary Blood No Growth after 24 hours 04/05/18 12:05 Blood Culture - Preliminary Blood No Growth after 24 hours <José Manuel Malloy - Last Filed: 04/07/18 16:57> Subjective Patient doing well today. Tolerating tube feeds. Discussed with the family bolus feedings to be spread out more. Follow-up for PEG tube removal as outpatient. Objective - Vital Signs Vital signs: Vital Signs Temp 97.9 F 04/07/18 12:51 Pulse 76 04/07/18 12:51 Resp 17 04/07/18 12:51 BP 149/78 04/07/18 12:51 Pulse Ox 93 L 04/07/18 12:51 Intake & Output 04/06/18 04/07/18 04/07/18 18:59 06:59 18:59 Intake Total 1050 1050 Balance 1050 1050 Weight 88.451 kg 88.451 kg Intake: IV 250 Intake, IV Titration 800 1050 Amount Acyclovir Sodium 500 mg 100 100 In Sodium Chloride 0.9% 100 ml @ 100 mls/hr IVPB Q8HR [facility] Rx#:[id number] Fluconazole in NaCl,Iso- 50 Osm 100 mg In Saline 1 50ml.bag @ 50 mls/hr IVPB DAILY@1800 [facility] Rx#: [id number] Sodium Chloride 0.9% 1, 700 900 000 ml @ 100 mls/hr IV . Q10H [facility] Rx#:[id number] Other: Voiding Method Toilet Toilet # Voids 1 - Labs CBC & Chem 7: 04/07/18 08:40 04/07/18 08:40 Labs: Abnormal Lab Results - Last 24 Hours (Table) 04/06/18 04/07/18 Range/Units 19:20 08:40 RBC 2.97 L (4.30-5.90) m/uL Hgb 9.1 L (13.0-17.5) gm/dL Hct 27.0 L (39.0-53.0) % RDW 17.1 H (11.5-15.5) % Lymphocytes # (Manual) 0.24 L (1.0-4.8) k/uL Metamyelocytes # (Man) 0.08 H (0) k/uL Myelocytes # (Manual) 0.08 H (0) k/uL POC Glucose (mg/dL) 112 H (75-99) mg/dL Microbiology - Last 24 Hours (Table) 04/05/18 12:25 Blood Culture - Preliminary Blood No Growth after 48 hours 04/05/18 12:05 Blood Culture - Preliminary Blood No Growth after 48 hours
[2018-04-07 11:05] LABS: Band Neutrophils % 15 %; Eosinophils # (M) 0.08 k/uL (0-0.7); Lymphocytes # (M) 0.24 k/uL (1.0-4.8); Metamyelocytes # (M) 0.08 k/uL (0); Metamyelocytes % 1 %; Monocytes # (M) 0.73 k/uL (0-1.0); Myelocytes # (M) 0.08 k/uL (0); Myelocytes % 1 %; Neutrophils % (M) 72 %; Nucleated Red Blood Cells 0 /100 WBC (0-0); Total Cells Counted 200
[2018-04-07 11:07] LABS: Polychromasia Present; Toxic Granulation Present
[2018-04-07 12:53] VITALS: BP 149/78; PULSE 76; RESP 17; TEMP 97.9
[2018-04-07] MEDS: PANTOPRAZOLE 40 MG/10 ML VIAL IVP SCH (15:11)
--- NOTE | 2018-04-07 16:28 | P.PN ---
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 He completed treatment with expected dysphagia,odynophagia ,nausea, and vomiting. He continues to have thick poorly controlled secretions and was therefore given a suction machine rx at discharge. Ethan Gerardo M.D.
--- NOTE | 2018-04-07 16:39 | P.PN ---
Subjective Progress Note Date: 04/07/18 Principal diagnosis: Squamous cell head/neck, completed Tx 03/20 In follow-up today patient is status post PEG tube placement, he denies any significant discomfort postprocedure. He continues to sip liquids and chew ice chips. Objective - Vital Signs Vital signs: Vital Signs Temp 97.9 F 04/07/18 12:51 Pulse 76 04/07/18 12:51 Resp 17 04/07/18 12:51 BP 149/78 04/07/18 12:51 Pulse Ox 93 L 04/07/18 12:51 Intake & Output 04/06/18 04/07/18 04/07/18 18:59 06:59 18:59 Intake Total 1050 1050 Balance 1050 1050 Weight 88.451 kg 88.451 kg Intake: IV 250 Intake, IV Titration 800 1050 Amount Acyclovir Sodium 500 mg 100 100 In Sodium Chloride 0.9% 100 ml @ 100 mls/hr IVPB Q8HR [facility] Rx#:[id number] Fluconazole in NaCl,Iso- 50 Osm 100 mg In Saline 1 50ml.bag @ 50 mls/hr IVPB DAILY@1800 [facility] Rx#: [id number] Sodium Chloride 0.9% 1, 700 900 000 ml @ 100 mls/hr IV . Q10H [facility] Rx#:[id number] Other: Voiding Method Toilet Toilet # Voids 1 - Constitutional General appearance: Present: average body habitus, cooperative, no acute distress - EENT Eyes: Present: anicteric sclerae, EOMI ENT: Present: hearing grossly normal, normal oropharynx - Respiratory Details: respirations even and unlabored - Peripheral edema leg Peripheral Edema: bilateral: None - Gastrointestinal General gastrointestinal: Present: soft - Neurologic Neurologic: Present: CNII-XII intact - Musculoskeletal Musculoskeletal: Present: strength equal bilaterally - Psychiatric Psychiatric: Present: A&O x's 3, appropriate affect, intact judgment & insight - Labs CBC & Chem 7: 04/07/18 08:40 04/07/18 08:40 Labs: Abnormal Lab Results - Last 24 Hours (Table) 04/06/18 04/07/18 Range/Units 19:20 08:40 RBC 2.97 L (4.30-5.90) m/uL Hgb 9.1 L (13.0-17.5) gm/dL Hct 27.0 L (39.0-53.0) % RDW 17.1 H (11.5-15.5) % Lymphocytes # (Manual) 0.24 L (1.0-4.8) k/uL Metamyelocytes # (Man) 0.08 H (0) k/uL Myelocytes # (Manual) 0.08 H (0) k/uL POC Glucose (mg/dL) 112 H (75-99) mg/dL Microbiology - Last 24 Hours (Table) 04/05/18 12:25 Blood Culture - Preliminary Blood No Growth after 48 hours 04/05/18 12:05 Blood Culture - Preliminary Blood No Growth after 48 hours Assessment and Plan (1) Odynophagia Current Visit: Yes Status: Acute Priority: High Code(s): R13.10 - DYSPHAGIA, UNSPECIFIED SNOMED Code(s): 19640992 (2) Dysphagia Current Visit: Yes Status: Acute Priority: High Code(s): R13.10 - DYSPHAGIA, UNSPECIFIED SNOMED Code(s): 92169970 (3) Squamous cell carcinoma of head and neck Current Visit: Yes Status: Chronic Priority: Medium Code(s): C76.0 - MALIGNANT NEOPLASM OF HEAD, FACE AND NECK SNOMED Code(s): 236238260 (4) Anemia Narrative/Plan: From work up it appears anemia is more related to inflammation, ferritin is extraordinarily elevated(>1000) with low iron studies otherwise. No treatment planned at this time. Transfuse for Hgb<7. Current Visit: Yes Status: Acute Priority: Medium Code(s): D64.9 - ANEMIA , UNSPECIFIED SNOMED Code(s): 416152401 Plan: Dysphagia and odynophagia are secondary to chemo/radiation treatment for Sq cell head/neck. PEG tube placed. Feedings to start per Surgery, dietitian to calculate calories. Pt was encouraged to sips of fluids to keep the muscles of the esophagus moving to prevent weakening of the muscles.
--- NOTE | 2018-04-08 08:24 | DS ---
DISCHARGE SUMMARY DATE OF ADMISSION: 04/04/2018 DATE OF DISCHARGE: 04/07/2018 FINAL DIAGNOSES: 1. Acute odynophagia as a side effect of chemoradiation. 2. Neck squamous cell cancer, status post chemoradiation that finished on March 20. 3. Normocytic anemia of malignancy and possibly chemotherapy. 4. Hyperlipidemia. 5. Anxiety, not otherwise specified. HOSPITAL COURSE: This patient with squamous cell cancer of the neck, status post chemoradiation, presents with severe odynophagia, unable to keep much down. A PEG tube was placed. The patient's insurance was not going to cover the pump at home; hence bolus feeding through the PEG tube education was carried out. I talked to them about pain management control. Also discussed with Dr. Ye. The patient will primarily be n.p.o. except maybe for some water as tolerated. Care also discussed with the case resource manager. On examination, temperature 97.5, pulse 83, respirations 16, blood pressure 120/64, pulse ox 97% on room air. ABDOMEN: Soft, nontender. PEG tube in place. Discussion and discharge planning more than 35 minutes. LABS: White count 8.1, hemoglobin 9.1. Potassium 4.3. DISCHARGE MEDICATIONS: 1. [place] 10 one tablet q.i.d. p.r.n. 2. Ativan 0.5 p.o. q.i.d. 3. Multivitamin. 4. Zofran 8 mg q.4 p.r.n. 5. Protonix 40 mg a day. 6. Fentanyl q.72 hours. 7. Bolus PEG tube feeding as prescribed. Follow up with Dr. Ye on 04/14/2018. Follow up with Jozef Pretty in 1 week. MMODL / IJN: [id number] /
== END 2018-04-07 17:45 | disposition home health service (06) | DRG 392 ==
LOC: EC 10:00 → 3NMEDONC 13:25
PROVIDERS: ADMIT Hospitalist; ATTEND Hospitalist
PROC: 0DH63UZ Insertion of Feeding Device into Stomach, Percutaneous Approach (ICD-10-PCS; principal; 2018-04-06 11:35)
DX: R13.10 Dysphagia, unspecified (principal); D70.1 Agranulocytosis secondary to cancer chemotherapy; C14.0 Malignant neoplasm of pharynx, unspecified; C01 Malignant neoplasm of base of tongue; D63.0 Anemia in neoplastic disease; E78.5 Hyperlipidemia, unspecified; E86.0 Dehydration; F41.9 Anxiety disorder, unspecified; K59.00 Constipation, unspecified; R62.7 Adult failure to thrive; T45.1X5A Adverse effect of antineoplastic and immunosuppressive drugs, initial encounter; R11.2 Nausea with vomiting, unspecified; R19.7 Diarrhea, unspecified; Z79.899 Other long term (current) drug therapy; Z85.46 Personal history of malignant neoplasm of prostate; Z90.79 Acquired absence of other genital organ(s)
CPT/HCPCS: 36415; 43246; 71046; 74018; 80048; 80053; 81003; 82150; 82607; 82728; 83540; 83550; 83690; 83735; 84100; 85025; 85045; 87040; 96361; 96374; 96375; 99285

== ENCOUNTER 2018-05-07 13:27 | Inpatient (IN) | payer OTHER ==
[2018-05-07 15:13] LABS: Basophils % (A) 0 %; Eosinophils % (A) 1 %; HCT 28.8 % (39.0-53.0); HGB 9.3 gm/dL (13.0-17.5); Lymphocytes # (A) 0.3 k/uL (1.0-4.8); Lymphocytes % (A) 10 %; MCH 30.3 pg (25.0-35.0); MCHC 32.3 g/dL (31.0-37.0); MCV 93.8 fL (80.0-100.0); Mean Platelet Volume 7.5; Monocytes # (A) 0.1 k/uL (0-1.0); Monocytes % (A) 3 %; Neutrophils # (A) 2.8 k/uL (1.3-7.7); Neutrophils % (A) 85 %; Platelet Count 122 k/uL (150-450); RBC 3.07 m/uL (4.30-5.90); RDW 15.9 % (11.5-15.5); WBC 3.3 k/uL (3.8-10.6)
[2018-05-07 15:21] LABS: ALT 17 U/L (21-72); AST 18 U/L (17-59); Albumin 3.5 g/dL (3.5-5.0); Alkaline Phosphatase 55 U/L (38-126); Anion Gap 7 mmol/L; Blood Urea Nitrogen 19 mg/dL (9-20); Calcium 9.2 mg/dL (8.4-10.2); Carbon Dioxide 28 mmol/L (22-30); Chloride 100 mmol/L (98-107); Glucose 114 mg/dL (74-99); Magnesium 1.9 mg/dL (1.6-2.3); Phosphorus 4.3 mg/dL (2.5-4.5); Potassium 4.8 mmol/L (3.5-5.1); Sodium 135 mmol/L (137-145); Total Bilirubin 0.4 mg/dL (0.2-1.3)
[2018-05-07 15:45] VITALS: BMI 22.2
[2018-05-07] MEDS ORDERED: FLUCONAZOLE IN NACL,ISO-OSM 200 MG in SALINE 1 100ML.BAG IVPB SCH (16:00)
[2018-05-07] MEDS: SODIUM CHLORIDE 0.9% 1,000 ML IV SCH (16:56)
--- NOTE | 2018-05-07 18:15 | CT ---
EXAMINATION TYPE: CT brain wo/w con DATE OF EXAM: 05/07/2018 COMPARISON: None HISTORY: History of prostate and throat cancer. Possible mets. CT DLP: 2232.1 mGycm Automated exposure control for dose reduction was used. CONTRAST: CT scan of the head is performed without and with IV Contrast, patient injected with mL of Isovue M30 0. FINDINGS: Ventricles have normal size. There is no mass effect nor midline shift. There is no sign of intracran ial hemorrhage. The contrast images show no pathologic enhancement. There is normal contrast opacific ation of the venous sinuses. There is minor mucosal thickening in the ethmoid air cells. IMPRESSION: Negative CT scan of the brain. Minimal ethmoid sinusitis.
--- NOTE | 2018-05-07 18:29 | CT ---
EXAMINATION TYPE: CT neck chest w con DATE OF EXAM: 05/07/2018 5:49 PM COMPARISON: 12/23/2017 HISTORY: History of prostate and throat cancer. Possible mets. CT DLP: 1093.5 mGycm Automated exposure control for dose reduction was used. CONTRAST: CT scan of the neck and chest is performed following with IV Contrast, patient injected with 100 mL o f Isovue M300. Axial images are obtained, coronal and sagittal reformatted images are reviewed. FINDINGS: Orbital margins are intact. There is no evidence of orbital mass. There is mucous 1.[address] right maxillary sinus. Maxilla is intact. Submandibular salivary glands are symmetric. The parotid glands are symmetric. Cervical and thoracic vertebra have normal alignment. There is minor degenerat li hypertrophic disc change. Epiglottis is within normal limits. Prevertebral soft tissues are not e nlarged. There is very slight asymmetric increased soft tissue density of the hypopharynx on the left side compared to the right. The base of the tongue is somewhat thicker on the left side compared to the right. The oropharyngeal airway is asymmetric with some effacement of the airway on the left side . There is mild subpleural reticular nodular infiltrate in the posterior lung calhoun. There is a 1.6 cm nodule adjacent to the pleura in the right lower lobe posterior lung base. There is no pleural effus ion. There is no pericardial effusion. There are no hilar masses. There is no mediastinal adenopathy. I see no bony destructive process. The ribs appear intact. IMPRESSION: There is some effacement of the posterior left side oral pharyngeal and hypopharyngeal a irway consistent with tumor. This is improved compared to old CT scan and suggestive favorable treatm ent response. There is a nodular infiltrate in the right lower lobe adjacent to the pleura that is new compared to old exam. This is indeterminate. This could be inflammatory infiltrate or metastatic disease. There is mild anterior cervical lymphadenopathy with lymph nodes that measure up to 12 mm. Lymph node s appear not significantly different.
[2018-05-07 22:16] VITALS: RESP 16
[2018-05-07] MEDS: CEFEPIME 2 GM in SODIUM CHLORIDE 0.9% 100 ML IVPB SCH (22:28)
[2018-05-07] MEDS: LORazepam 0.5 MG TAB PO SCH (22:28)
[2018-05-08] MEDS: SODIUM CHLORIDE 0.9% 1,000 ML IV SCH ×2 (06:01→17:59)
[2018-05-08] MEDS: CEFEPIME 2 GM in SODIUM CHLORIDE 0.9% 100 ML IVPB SCH ×3 (07:53→23:59)
[2018-05-08] MEDS: LORazepam 0.5 MG TAB PO SCH ×2 (07:54→22:23)
[2018-05-08] MEDS: OSELTAMIVIR 75 MG CAP PO SCH ×2 (07:54→22:23)
[2018-05-08] MEDS: PANTOPRAZOLE 40 MG TABLET PO SCH (07:54)
--- NOTE | 2018-05-08 08:46 | HP ---
HISTORY AND PHYSICAL DATE OF SERVICE: 05/07/2018 CHIEF COMPLAINT: Abdominal pain, nausea, vomiting and as well as fever. HISTORY OF PRESENT ILLNESS: This is a 57-year-old gentleman with a past medical history of multiple medical problems including history of hyperlipidemia, history of throat, jbvi-hi-prvips cancer, history of anxiety being followed by in the outpatient setting recently finished chemotherapy. The patient is complaining of some throat discomfort. Patient also had nausea, vomiting and some fever today from Dr. Ye's office and patient admitted for further evaluation and treatment. Patient was found to be mildly pancytopenic. Patient is started on a broad-spectrum IV antibiotic. There is no history any headache, loss of the loss consciousness, seizures, chest pain, palpitation, cough, sputum at this time. 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 HOME MEDICATIONS ARE: 1. Fentalyn patch 25 mcg q.72 hours. 2. Protonix 40 mg daily. 3. Zofran 8 mg p.r.n. 4. Multivitamin 1 p.o. daily. ALLERGIES: None. FAMILY HISTORY: Neuropathy in the mother. SOCIAL HISTORY: Occasional alcohol intake. No history of smoking. REVIEW OF SYSTEMS: ENT: As mentioned earlier. CARDIOVASCULAR: No angina. RESPIRATION: As mentioned earlier. GI: As mentioned earlier. : No dysuria. NERVOUS SYSTEM: No numbness or weakness. ALLERGY/IMMUNOLOGY: No asthma or hayfever. MUSCULOSKELETAL: As mentioned earlier. HEMATOLOGY: As mentioned earlier. ENDOCRINE: No history of diabetes or hypothyroidism. CONSTITUTIONAL; Negative. DERMATOLOGY: Negative. RHEUMATOLOGY: Negative. PSYCHIATRY: As mentioned earlier. PHYSICAL EXAMINATION: Patient is alert and oriented x3, pulse 81, blood pressure 119/62, respirations 16, temperature is 98.3, pulse ox 97% on room air. HEENT: Conjunctivae normal. NECK: No jugular venous distension. CARDIAC: S1, S2 muffled. RESPIRATORY: Breath sounds diminished at the bases, no rhonchi, no crackles. ABDOMEN: Soft, nontender. No mass palpable legs no edema. No swelling. NERVOUS SYSTEM: Higher functions as mentioned earlier. LYMPHATICS: No lymph adenopathy. SKIN: No ulcer, rash, bleeding. JOINTS: No active deforming with arthropathy. LABS: WBC 3.2, hemoglobin 9.2, platelets 122. Sodium 132. ASSESSMENT: 1. Fever, possibly neutropenic fever. 2. Mild pancytopenia. 3. 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 4. Hyponatremia. 5. History of odynophagia and PEG tube placement. 6. History of prostate cancer surgery. 7. History of anxiety. RECOMMENDATION: In this 57-year-old gentleman who presented with multiple complex medical issues, will monitor the patient closely. Continue the current management and treatment. Will initiate a few time obtain cultures. Infectious Disease has been consulted and I would also order repeat labs. Influenza testing was also ordered. The prognosis guarded because of multiple complex medical issues and further copy of dictation will be forwarded to Dr. Jozef Pretty who is the primary care physician. HORACE / DOROTHY: [id number] / MTDD
[2018-05-08] MEDS ORDERED: ONDANSETRON 4 MG/2 ML VIAL IVP PRN (11:44)
[2018-05-08] MEDS: MULTIVITAMINS, THERA 1 EACH TAB PO SCH (11:47)
--- NOTE | 2018-05-08 12:35 | P.CONS ---
History of Present Illness - Reason for Consult Consult date: 05/08/18 Fever, Pancytopenia, Hx HN Cancer Requesting physician: Mirta Porter - Chief Complaint Fatigue - History of Present Illness Mr. Julian was seen in the office yesterday for just "not feeling well". Cough and Fatigue. Everything trying eat is vomiting, increased sinus drainage and secretions. He was brought in to be evaluated and IV Fluids and antiemetic given in office. When this completed he still did not feel well and had a low grade fever 100.4, therefore advised for further work-up, evaluation and fluids. he was admitted to [facility]. [place] Cultures, Influenza , and Imaging completed. Possible RLLL Pneumonia (?aspiration component), Positive Influenza, Positive O ral Candiasis. Review of Systems A 14 point review of systems assessed and completed and all negative except HPI Past Medical History Past Medical History: Cancer, Hyperlipidemia Additional Past Medical History / Comment(s): Throat/base of tongue squamous cell cancer with chemo radiation, odynophagia-has peg tube, prostate cancer with surgery, normocytic anemia History of Any Multi-Drug Resistant Organisms: None Reported Past Surgical History: Prostate Surgery Additional Past Surgical History / Comment(s): Triple endoscopy with biopsy, prostatectomy, colonoscopy, EGD with peg tube insertion. Past Anesthesia/Blood Transfusion Reactions: Motion Sickness Smoking Status: Never smoker - Past Family History Mother Family Medical History: No Reported History Additional Family Medical History / Comment(s): Mother has neuropathy. Father Family Medical History: No Reported History Additional Family Medical History / Comment(s): Father is healthy. Medications and Allergies Home Medications Medication Instructions Recorded Confirmed Type LORazepam [Ativan] 0.5 mg PO BID 04/04/18 05/07/18 History Multivitamins, Thera [Multivitamin 1 tab PO DAILY 04/04/18 05/07/18 History (formulary)] Ondansetron Odt [Zofran ODT] 8 mg PO Q4H PRN 04/04/18 05/07/18 History Pantoprazole [Protonix] 40 mg PO DAILY 04/04/18 05/07/18 History fentaNYL 25MCG/HR PATCH [Duragesic 1 patch TRANSDERM Q72H 05/07/18 05/07/18 History 25MCG/HR] Allergies Allergy/AdvReac Type Severity Reaction Status Date / Time No Known Allergies Allergy Verified 05/07/18 14:33 Physical Exam Vitals: Vital Signs Temp Pulse Resp BP Pulse Ox 05/08/18 05:00 98.1 F 81 16 124/69 98 05/08/18 00:00 81 16 05/07/18 22:15 98.3 F 81 16 119/65 97 05/07/18 19:51 99.1 F 85 18 115/64 05/07/18 15:00 99 F 86 18 146/53 Intake and Output 05/07/18 05/08/18 05/08/18 22:59 06:59 14:59 Intake Total 1440 Balance 1440 Intake: Tube Feeding 1440 Other: Voiding Method Toilet Toilet Weight 78.7 kg 78.7 kg Gen" Alert and oriented x3, No acute Distress, Pale Head: NC, AT Neck: Supple, Trachea Midline, Lymph: Mild Adenopathy, normal, non tender, No axillary, cervical, or supraclavicular Heart: Tachy, Reg Lungs: Diminished RLL, No Wheezes, No Rhonchi, No increased Effort Abdomen: Soft, ND, NT Ext: No Edema Neurological: No sensory or Motor Deficits Noted Psych: Calm and Coorperative Results CBC & Chem 7: 05/08/18 13:11 05/08/18 13:11 Labs: Abnormal Lab Results - Last 24 Hours (Table) 05/07/18 05/07/18 05/07/18 Range/Units 14:58 14:58 14:58 WBC 3.3 L (3.8-10.6) k/uL RBC 3.07 L (4.30-5.90) m/uL Hgb 9.3 L (13.0-17.5) gm/dL Hct 28.8 L (39.0-53.0) % RDW 15.9 H (11.5-15.5) % Plt Count 122 L (150-450) k/uL Lymphocytes # 0.3 L (1.0-4.8) k/uL Sodium 135 L (137-145) mmol/L Glucose 114 H (74-99) mg/dL ALT 17 L (21-72) U/L Total Protein 6.0 L (6.3-8.2) g/dL Vitamin D 25-Hydroxy 27.6 L (30.0-100.0) ng/mL Influenza Type A RNA (Not Detectd) 05/08/18 Range/Units 00:05 WBC (3.8-10.6) k/uL RBC (4.30-5.90) m/uL Hgb (13.0-17.5) gm/dL Hct (39.0-53.0) % RDW (11.5-15.5) % Plt Count (150-450) k/uL Lymphocytes # (1.0-4.8) k/uL Sodium (137-145) mmol/L Glucose (74-99) mg/dL ALT (21-72) U/L Total Protein (6.3-8.2) g/dL Vitamin D 25-Hydroxy (30.0-100.0) ng/mL Influenza Type A RNA Detected H (Not Detectd) CT scan - chest: report reviewed CT Scan - head: report reviewed Assessment and Plan (1) Influenza A Current Visit: Yes Status: Acute Code(s): J10.1 - FLU DUE TO OTH IDENT INFLUENZA VIRUS W OTH RESP MANIFEST SNOMED Code(s): 601927895 (2) Pneumonia and influenza Current Visit: Yes Status: Acute Code(s): J11.00 - FLU DUE TO UNIDENTIFIED FLU VIRUS W UNSP TYPE OF PNEUMONIA SNOMED Code(s): 510188567 (3) Nodule of lower lobe of right lung Current Visit: Yes Status: Acute Code(s): R91.1 - SOLITARY PULMONARY NODULE SNOMED Code(s): 045423736 (4) Leukopenia Current Visit: Yes Status: Acute Code(s): D72.819 - DECREASED WHITE BLOOD CELL COUNT, UNSPECIFIED SNOMED Code(s): 45848271 (5) Dehydration Current Visit: Yes Status: Acute Code(s): E86.0 - DEHYDRATION SNOMED Code(s): 54444868 (6) Fever Current Visit: Yes Status: Acute Code(s): R50.9 - FEVER, UNSPECIFIED SNOMED Code(s): 181757119 (7) Anemia Current Visit: No Status: Acute Priority: Medium Code(s): D64.9 - ANEMIA, UNSPECIFIED SNOMED Code(s): 805815037 (8) Dysphagia Current Visit: No Status: Acute Priority: High Code(s): R13.10 - DYSPHAGIA, UNSPECIFIED SNOMED Code(s): 81185311 (9) Intractable vomiting with nausea Current Visit: No Status: Acute Code(s): R11.2 - NAUSEA WITH VOMITING, UNSPECIFIED SNOMED Code(s): 279860391 (10) Odynophagia Current Visit: No Status: Acute Priority: High Code(s): R13.10 - DYSPHAGIA, UNSPECIFIED SNOMED Code(s): 41735612 (11) Squamous cell carcinoma of head and neck Current Visit: No Status: Chronic Priority: Medium Code(s): C76.0 - MALIGNANT NEOPLASM OF HEAD, FACE AND NECK SNOMED Code(s): 685436118 (12) Anna albicans infection Current Visit: Yes Status: Acute Code(s): B37.9 - CANDIDIASIS, UNSPECIFIED SNOMED Code(s): 01271358 Plan: CT Neck and Chest: RLL INfiltrate/1.6cm nodule. Will reassess after treatment pneumonia and Influenza Assessment and Recommendations: Intractable Nausea and Vomiting: - Improving - Continue PRN Antiemetics and IV Hydration Normocytic Anemia: - Secondary to recovering bone marrow from Chemotherapy and Radiation - Component of Acute Infection Leukopenia, Lymphocytopenia: Low Grade Fevers - Likely Secondary to viral Component of Infectious Process - Monitor Daily CBC Influenza A Positive: - Infectious Disease Consultation - Tamiflu Right Lower Lobe Nodule/Infiltrate: - Right Lower Lobe Pneumonia versus Aspiration versus other: - Cefepime Broad Spectrum Antibiotics at this time until further evaluation by Infectious Disease Grade 3 of 4 Oral Candiasis: - IV Fluconazole Headaches: Likely Secondary to Infectious Process and Dehydration - CT Head Negative Odynphasia: - Speech Therapy to assess aspiration and provide exercises to increase safe po intake - Supplemental intake G-Tube Squamous Cell Carcinoma: HPV Positive - Status Post Concurrent Radiation and Chemotherapy - Completed 6 weeks ago - No sign of recurrence at this time - Outpatient PET scheduled next week, may need to delay one week for infections. Pain Secondary to Neoplastic Process: - Continue on 25mcg Fentanyl q72 - Breakthrough - Bowel Regimen if needed for narcotic induced constipation Debility and Muscle Atrophy: - Secondary to decrease activity - PT/OT Evaluation, benefit for outpatient PT after discharge. Thank you for allowing us to participate in the care of this patient will follow along with you Chelsi Collins [facility] Medical Oncology
[2018-05-08 13:32] LABS: Basophils % (A) 0 %; Eosinophils % (A) 1 %; HCT 28.2 % (39.0-53.0); HGB 9.5 gm/dL (13.0-17.5); Lymphocytes # (A) 0.5 k/uL (1.0-4.8); Lymphocytes % (A) 12 %; MCH 31.2 pg (25.0-35.0); MCHC 33.8 g/dL (31.0-37.0); MCV 92.5 fL (80.0-100.0); Mean Platelet Volume 7.9; Monocytes # (A) 0.3 k/uL (0-1.0); Monocytes % (A) 8 %; Neutrophils % (A) 78 %; Platelet Count 124 k/uL (150-450); RBC 3.05 m/uL (4.30-5.90); RDW 15.9 % (11.5-15.5); WBC 3.9 k/uL (3.8-10.6)
[2018-05-08 13:45] LABS: ALT 28 U/L (21-72); AST 15 U/L (17-59); Albumin 3.4 g/dL (3.5-5.0); Alkaline Phosphatase 49 U/L (38-126); Anion Gap 6 mmol/L; Blood Urea Nitrogen 23 mg/dL (9-20); Calcium 8.8 mg/dL (8.4-10.2); Carbon Dioxide 31 mmol/L (22-30); Chloride 102 mmol/L (98-107); Glucose 125 mg/dL (74-99); Magnesium 1.8 mg/dL (1.6-2.3); Phosphorus 3.5 mg/dL (2.5-4.5); Potassium 4.4 mmol/L (3.5-5.1); Sodium 139 mmol/L (137-145); Total Bilirubin 0.3 mg/dL (0.2-1.3); Total Protein 5.8 g/dL (6.3-8.2)
--- NOTE | 2018-05-08 13:59 | P.CONS ---
History of Present Illness - Reason for Consult Consult date: 05/08/18 Fever - History of Present Illness This is a 57-year-old male patient with past medical history of prostate cancer status post resection and more recently of squamous cell tongue cancer completed chemotherapy and radiation therapy March 20. No surgery was required. He had an admission in March which time he had a PEG tube placement Dr. Malloy. Patient has been on tube feedings and tolerating them has gained a couple pounds back. He states he still has some sore throat in one spot where the cancer was located but otherwise no difficulty swallowing. Patient states that he developed nausea, vomiting and fever for about 4-5 days along with runny nose. He apparently was vomiting all night long and finally came into Dr. Ye's office and subsequently sent into the emergency center for evaluation and admission. Influenza A positive. Patient presented with pancytopenia with white count 3.3, hemoglobin 9.3, platelet count 122. Albumin is 3.5. He underwent a Can of the brain that was negative. Neck and chest CAT scan with contrast revealed tumor on the left oropharynx and hypopharyngeal airway consistent with tumor. Findings suggest favorable treatment response. There is a nodule infiltrate in the right lower lobe that is inflammatory or metastatic disease. Mild cervical lymphadenopathy. Patient was started on Tamiflu this morning. He is also started on fluconazole and cefepime. Review of Systems All systems: negative Constitutional: Reports chills, Reports fatigue, Reports fever, Reports poor appetite, Reports weakness, Reports weight gain, Reports weight loss Eyes: denies blurred vision, denies pain Ears, nose, mouth and throat: Reports sore throat, Denies dental pain, Denies headache, Denies mouth pain, Denies swelling in mouth Cardiovascular: Denies chest pain, Denies dyspnea on exertion, Denies edema, Denies shortness of breath, Denies syncope Respiratory: Reports cough, Reports cough with sputum, Denies dyspnea, Denies excessive sputum, Denies hemoptysis, Denies home oxygen, Denies wheezing Gastrointestinal: Reports loss of appetite, Reports nausea, Reports vomiting, Denies abdominal pain, Denies diarrhea Genitourinary: Denies dysuria, Denies urinary frequency, Denies urinary retention Musculoskeletal: Denies frequent falls, Denies gait dysfunction, Denies myalgias Integumentary: Denies pruritus, Denies rash Neurological: Denies numbness, Denies weakness Psychiatric: Denies anxiety, Denies depression Endocrine: Denies fatigue, Denies weight change Past Medical History Past Medical History: Cancer, Hyperlipidemia Additional Past Medical History / Comment(s): Throat/base of tongue squamous cell cancer with chemo radiation, odynophagia-has peg tube, prostate cancer with surgery, normocytic anemia History of Any Multi-Drug Resistant Organisms: None Reported Past Surgical History: Prostate Surgery Additional Past Surgical History / Comment(s): Triple endoscopy with biopsy, prostatectomy, colonoscopy, EGD with peg tube insertion. Past Anesthesia/Blood Transfusion Reactions: Motion Sickness Smoking Status: Never smoker Additional Past Alcohol Use History / Comment(s): Patient is a lifelong non smoker. He denies any marijuana or illicit drug use. He drinks alcohol occasionally. He lives at home with his and his currently off work on medical leave. He works in heating and cooling. They have 2 cats and 1 dog as well as a daughter in the home. No recent travel. - Past Family History Mother Family Medical History: No Reported History Additional Family Medical History / Comment(s): Mother has neuropathy. Father Family Medical History: No Reported History Additional Family Medical History / Comment(s): Father is healthy. Medications and Allergies Home Medications Medication Instructions Recorded Confirmed Type LORazepam [Ativan] 0.5 mg PO BID 04/04/18 05/07/18 History Multivitamins, Thera [Multivitamin 1 tab PO DAILY 04/04/18 05/07/18 History (formulary)] Ondansetron Odt [Zofran ODT] 8 mg PO Q4H PRN 04/04/18 05/07/18 History Pantoprazole [Protonix] 40 mg PO DAILY 04/04/18 05/07/18 History fentaNYL 25MCG/HR PATCH [Duragesic 1 patch TRANSDERM Q72H 05/07/18 05/07/18 History 25MCG/HR] Allergies Allergy/AdvReac Type Severity Reaction Status Date / Time No Known Allergies Allergy Verified 05/07/18 14:33 Physical Exam Vitals: Vital Signs Temp Pulse Resp BP Pulse Ox 05/08/18 05:00 98.1 F 81 16 124/69 98 05/08/18 00:00 81 16 05/07/18 22:15 98.3 F 81 16 119/65 97 05/07/18 19:51 99.1 F 85 18 115/64 05/07/18 15:00 99 F 86 18 146/53 Intake and Output 05/07/18 05/08/18 05/08/18 22:59 06:59 14:59 Intake Total 1615 Balance 1615 Intake: Tube Feeding 1615 Other: Voiding Method Toilet Toilet Weight 78.7 kg 78.7 kg Gen: This is a 57-year-old male. He is found walking from the bathroom and gait appears to be steady. He appears to be in no acute distress. HEENT: Head is atraumatic, normocephalic. Pupils equal, round. Sclerae is anicteric. Conjunctiva pink. Mucous membranes of the mouth are moist. No thrush noted. NECK: Supple. No JVD. No lymphadenopathy. No thyromegaly. LUNGS: Clear to auscultation. No wheezes or rhonchi. No intercostal retractions. HEART: Regular rate and rhythm. No murmur. ABDOMEN: Soft. Bowel sounds are present. No masses. No tenderness. PEG tube epigastric area with no surrounding tenderness, erythema. EXTREMITIES: No pedal edema. No calf tenderness. NEUROLOGICAL: Patient is awake, alert and oriented x3. Cranial nerves 2 through 12 are grossly intact. Results Results: Laboratory Results WBC 3.9 k/uL (3.8-10.6) 05/08/18 13:11 RBC 3.05 m/uL (4.30-5.90) L 05/08/18 13:11 Hgb 9.5 gm/dL (13.0-17.5) L 05/08/18 13:11 Hct 28.2 % (39.0-53.0) L 05/08/18 13:11 MCV 92.5 fL (80.0-100.0) 05/08/18 13:11 MCH 31.2 pg (25.0-35.0) 05/08/18 13:11 MCHC 33.8 g/dL (31.0-37.0) 05/08/18 13:11 RDW 15.9 % (11.5-15.5) H 05/08/18 13:11 Plt Count 124 k/uL (150-450) L 05/08/18 13:11 Neutrophils % 78 % 05/08/18 13:11 Lymphocytes % 12 % 05/08/18 13:11 Monocytes % 8 % 05/08/18 13:11 Eosinophils % 1 % 05/08/18 13:11 Basophils % 0 % 05/08/18 13:11 Neutrophils # 3.0 k/uL (1.3-7.7) 05/08/18 13:11 Lymphocytes # 0.5 k/uL (1.0-4.8) L 05/08/18 13:11 Monocytes # 0.3 k/uL (0-1.0) 05/08/18 13:11 Eosinophils # 0.0 k/uL (0-0.7) 05/08/18 13:11 Basophils # 0.0 k/uL (0-0.2) 05/08/18 13:11 Sodium 139 mmol/L (137-145) 05/08/18 13:11 Potassium 4.4 mmol/L (3.5-5.1) 05/08/18 13:11 Chloride 102 mmol/L (98-107) 05/08/18 13:11 Carbon Dioxide 31 mmol/L (22-30) H 05/08/18 13:11 Anion Gap 6 mmol/L 05/08/18 13:11 BUN 23 mg/dL (9-20) H 05/08/18 13:11 Creatinine 0.71 mg/dL (0.66-1.25) 05/08/18 13:11 Est GFR (CKD-EPI)AfAm >90 (>60 ml/min/1.73 sqM) 05/08/18 13:11 Est GFR (CKD-EPI)NonAf >90 (>60 ml/min/1.73 sqM) 05/08/18 13:11 Glucose 125 mg/dL (74-99) H 05/08/18 13:11 Calcium 8.8 mg/dL (8.4-10.2) 05/08/18 13:11 Phosphorus 3.5 mg/dL (2.5-4.5) 05/08/18 13:11 Magnesium 1.8 mg/dL (1.6-2.3) 05/08/18 13:11 Total Bilirubin 0.3 mg/dL (0.2-1.3) 05/08/18 13:11 AST 15 U/L (17-59) L 05/08/18 13:11 ALT 28 U/L (21-72) 05/08/18 13:11 Alkaline Phosphatase 49 U/L (38-126) 05/08/18 13:11 Total Protein 5.8 g/dL (6.3-8.2) L 05/08/18 13:11 Albumin 3.4 g/dL (3.5-5.0) L 05/08/18 13:11 Vitamin D 25-Hydroxy 27.6 ng/mL (30.0-100.0) L 05/07/18 14:58 Influenza Type A RNA Detected (Not Detectd) H 05/08/18 00:05 Influenza Type B (PCR) Not Detected (Not Detectd) 05/08/18 00:05 CBC & Chem 7: 05/08/18 13:11 05/08/18 13:11 Labs: Abnormal Lab Results - Last 24 Hours (Table) 05/07/18 05/07/18 05/07/18 Range/Units 14:58 14:58 14:58 WBC 3.3 L (3.8-10.6) k/uL RBC 3.07 L (4.30-5.90) m/uL Hgb 9.3 L (13.0-17.5) gm/dL Hct 28.8 L (39.0-53.0) % RDW 15.9 H (11.5-15.5) % Plt Count 122 L (150-450) k/uL Lymphocytes # 0.3 L (1.0-4.8) k/uL Sodium 135 L (137-145) mmol/L Carbon Dioxide (22-30) mmol/L BUN (9-20) mg/dL Glucose 114 H (74-99) mg/dL AST (17-59) U/L ALT 17 L (21-72) U/L Total Protein 6.0 L (6.3-8.2) g/dL Albumin (3.5-5.0) g/dL Vitamin D 25-Hydroxy 27.6 L (30.0-100.0) ng/mL Influenza Type A RNA (Not Detectd) 05/08/18 05/08/18 05/08/18 Range/Units 00:05 13:11 13:11 WBC (3.8-10.6) k/uL RBC 3.05 L (4.30-5.90) m/uL Hgb 9.5 L (13.0-17.5) gm/dL Hct 28.2 L (39.0-53.0) % RDW 15.9 H (11.5-15.5) % Plt Count 124 L (150-450) k/uL Lymphocytes # 0.5 L (1.0-4.8) k/uL Sodium (137-145) mmol/L Carbon Dioxide 31 H (22-30) mmol/L BUN 23 H (9-20) mg/dL Glucose 125 H (74-99) mg/dL AST 15 L (17-59) U/L ALT (21-72) U/L Total Protein 5.8 L (6.3-8.2) g/dL Albumin 3.4 L (3.5-5.0) g/dL Vitamin D 25-Hydroxy (30.0-100.0) ng/mL Influenza Type A RNA Detected H (Not Detectd) Assessment and Plan Plan: This is a 57-year-old male who presented with influenza A and possible right lower lobe pneumonia. Patient is currently on Tamiflu and cefepime. Patient also presented with pancytopenia and followed by oncology for his underlying squamous cell carcinoma of the tongue. Blood culture is in process. Continue supportive care. Further recommendations as patient regresses. The above dictated assessment and findings were discussed with Dr. Low. The impression and plan of care have been directed as dictated. Nessa Diggs nurse practitioner acting as scribe for Dr. Low.
[2018-05-08] MEDS: FLUCONAZOLE 100 MG TAB PO SCH (17:38)
--- NOTE | 2018-05-08 19:16 | XR ---
EXAMINATION TYPE: XR chest 1V portable DATE OF EXAM: 05/08/2018 COMPARISON: 04/04/2018 HISTORY: Fever TECHNIQUE: Single frontal view of the chest is obtained. FINDINGS: Heart and mediastinum are normal. Lungs are clear. Diaphragm is normal. Bony thorax appear s normal. IMPRESSION: Normal chest. There is clearing of the minimal infiltrate in both lower lobes compared t o old exam.
[2018-05-08 20:31] LABS: Iron Saturation 16.25 (15.00-50.00)
--- NOTE | 2018-05-08 20:41 | PN ---
PROGRESS NOTE DATE OF SERVICE: 05/08/2018 This 57-year-old gentleman admitted with abdominal abscess, fever, also had chemoradiation for the squamous cell cancer. The patient also had PEG tube feeds also. The patient also positive for influenza A at this time. The CT scan of the chest was also noted and nodular infiltrate in the right lower lobe was also noted, which is possibly indicating of pneumonia too. Hematology/Oncology and Infectious Disease evaluations are in progress at this time. The patient is being closely monitored. PAST MEDICAL HISTORY: Reviewed. REVIEW OF SYSTEMS: Cardiovascular: As mentioned earlier. HEENT: As mentioned earlier. Respiration as mentioned earlier. GI no nausea or vomiting. : No dysuria. CENTRAL NERVOUS SYSTEM: As mentioned earlier. CURRENT MEDICATIONS ARE: Reviewed and include: 2. Ventolin patch. 3. Diflucan 200 mg daily. 4. Ativan 0.5 mg b.i.d. 5. Multivitamins 1 p.o. daily. 6. Zofran. 8. Protonix. PHYSICAL EXAM: Patient is alert, oriented x3. Pulse 79, blood pressure 130/60, respiration 16, temperature 98 degrees, pulse ox 98% on room air. HEENT: Conjunctivae normal. NECK: No jugular venous distention. CARDIOVASCULAR: S1, S2 muffled. RESPIRATORY: Breath sounds diminished in the bases. A few scattered rhonchi. ABDOMEN: Soft, nontender. No mass palpable. Legs are no edema. No swelling. CENTRAL NERVOUS SYSTEM: No focal deficits. LABS: WBC 3.9, hemoglobin is 9.5, platelets are 124 and vitamin D is low. Influenza is positive. ASSESSMENT: 1. Fever, possibly acute influenza A with possibly acute right lower lobe pneumonia. 2. Mild pancytopenia. 3. 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 4. Hyponatremia. 5. Odynophagia and PEG tube placement. 6. History of prostate cancer surgery. 7. History of anxiety. 8. Vitamin D deficiency. RECOMMENDATIONS AND DISCUSSION: Recommend to continue current medications, management and continue to monitor. Symptomatic treatment. Continue the broad-spectrum IV antibiotics. Repeat cultures. The patient also has some vitamin D deficiency and I would also recommend DVT prophylaxis and continue to monitor. Otherwise, prognosis guarded because of multiple complex medical issues. Further recommendations to follow. The patient is on antifungals and antibiotics. MMODL / IJN: [id number] / HAILEY
--- NOTE | 2018-05-08 22:19 | P.CON ---
Consult Note - . 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 No surgery was required. He had an admission in March which time he had a PEG tube placement Dr. Malloy. Patient has been on tube feedings and tolerating them has gained a couple pounds back. He states he still has some sore throat in one spot where the cancer was located but otherwise no difficulty swallowing. Patient states that he developed nausea, vomiting and fever for about 4-5 days along with runny nose. He apparently was vomiting all night long and finally came into Dr. Ye's office and subsequently sent into the emergency center for evaluation and admission. Influenza A positive. Patient presented with pancytopenia with white count 3.3, hemoglobin 9.3, platelet count 122. Albumin is 3.5. He underwent a CTof the brain that was negative. Neck and chest CAT scan with contrast revealed tumor on the left oropharynx and hypopharyngeal airway consistent with tumor. Findings suggest favorable treatment response. There is a nodule infiltrate in the right lower lobe that is inflammatory or metastatic disease. Mild cervical lymphadenopathy. Patient was started on Tamiflu this morning. He is also started on fluconazole and cefepime. Please see consult note is dictated by nurse practitioner Mrs. Mariey Dontae. This very pleasant 57-year-old male has the history of prior prostate carcinoma and more recently squamous cell carcinoma of the tongue which is completed his chemoradiation therapy on March 20. He did require PEG tube placement because of inability to maintain his nutrition. He became acutely ill before admission although did not have much of a fever he still was feeling well and influenza testing was positive. He's never started on Tamiflu with evidence of a new pulmonary infiltrate antibiotic therapy with cefepime was also added. There apparently was also some thrush and fluconazole had been added. The patient is not feeling considerably better with hydration antiviral therapy antibiotic therapy in the treatment of thrush. These will be continued. Once the patient has recovered white blood cell count transition to oral antibiotic therapy and completion of Tamiflu can be performed. Will also likely continue to complete a course of fluconazole. Cultures are process which may further direct therapy but with his clinical improvement would expect patient to be ready for discharge the next few days. It is likely a viral infection as well as the likely pneumonia resulted in the transient pancytopenia and expect this to rapidly improve. I agree with evaluation, assessment and plan as dictated by nurse practitioner Mrs. Nessa Diggs
[2018-05-08] MEDS: HEPARIN SODIUM,PORCINE 5,000 UNIT/ML 1 ML VIAL SQ SCH (22:23)
[2018-05-09 07:36] LABS: ALT 26 U/L (21-72); AST 17 U/L (17-59); Albumin 3.1 g/dL (3.5-5.0); Alkaline Phosphatase 49 U/L (38-126); Anion Gap 4 mmol/L; Blood Urea Nitrogen 23 mg/dL (9-20); Calcium 8.7 mg/dL (8.4-10.2); Carbon Dioxide 29 mmol/L (22-30); Chloride 106 mmol/L (98-107); Glucose 83 mg/dL (74-99); Potassium 4.7 mmol/L (3.5-5.1); Sodium 139 mmol/L (137-145); Total Bilirubin 0.2 mg/dL (0.2-1.3); Total Protein 5.5 g/dL (6.3-8.2)
[2018-05-09 07:47] LABS: HCT 27.8 % (39.0-53.0); HGB 8.2 gm/dL (13.0-17.5); MCH 27.7 pg (25.0-35.0); MCHC 29.5 g/dL (31.0-37.0); MCV 93.8 fL (80.0-100.0); Mean Platelet Volume 7.2; Platelet Count 109 k/uL (150-450); RBC 2.97 m/uL (4.30-5.90); RDW 15.8 % (11.5-15.5); WBC 1.9 k/uL (3.8-10.6)
[2018-05-09 08:15] LABS: Band Neutrophils % 2 %; Eosinophils # (M) 0.04 k/uL (0-0.7); Lymphocytes # (M) 0.53 k/uL (1.0-4.8); Monocytes # (M) 0.23 k/uL (0-1.0); Neutrophils % (M) 56 %; Nucleated Red Blood Cells 0 /100 WBC (0-0); Poikilocytosis (M) Present; Total Cells Counted 100
[2018-05-09] MEDS: PANTOPRAZOLE 40 MG TABLET PO SCH (10:25)
[2018-05-09] MEDS: LORazepam 0.5 MG TAB PO SCH ×2 (10:25→21:33)
[2018-05-09] MEDS: HEPARIN SODIUM,PORCINE 5,000 UNIT/ML 1 ML VIAL SQ SCH ×2 (10:25→21:33)
[2018-05-09] MEDS: MULTIVITAMINS, THERA 1 EACH TAB PO SCH (10:25)
[2018-05-09] MEDS: OSELTAMIVIR 75 MG CAP PO SCH ×2 (10:25→21:33)
[2018-05-09] MEDS: SODIUM CHLORIDE 0.9% 1,000 ML IV SCH (10:26)
[2018-05-09] MEDS: CEFEPIME 2 GM in SODIUM CHLORIDE 0.9% 100 ML IVPB SCH ×2 (10:38→16:50)
[2018-05-09] MEDS: FLUCONAZOLE 100 MG TAB PO SCH (16:50)
--- NOTE | 2018-05-09 23:48 | PN ---
PROGRESS NOTE DATE OF SERVICE: 05/09/2018 This 57-year-old gentleman admitted with abdominal pain and fever also had acute influenza A. Patient also had possible right lower lobe pneumonia also. Patient on antiviral drugs. No chest pain. No palpitations. No fever. The most recent chest x- ray which was done yesterday showed minimal infiltrate. EXAM: Alert and oriented x3. Pulse is 83, blood pressure 120/66, respirations 16, temperature 97.7, pulse ox 98% on room air. HEENT: Conjunctivae normal. NECK: No JVD. CARDIAC: S1, S2 muffled. RESPIRATORY: Diminished breath sounds at the bases. Scattered rhonchi. ABDOMEN: Soft. LEGS: No edema. NERVOUS SYSTEM: No focal deficits. LABS: At this time shows WBC 1.9, hemoglobin is 8.2, platelets 109. Otherwise, albumin is 3.1. ASSESSMENT: 1. Fever, possible acute influenza A with possible acute right lower lobe pneumonia, possibly gram-negative. 2. Mild pancytopenia. 3. 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 4. Hyponatremia. 5. Odynophagia and PEG tube placement. 6. History of prostate cancer surgery. 7. History of anxiety. 8. History of vitamin D deficiency. RECOMMENDATIONS AND DISCUSSION: Recommend to continue current management, continue symptomatic treatment. Patient ( ) the PEG tube. Otherwise, continue the rest of medications. Closely follow with Infectious Disease. Further recommendations to follow. MMODL / IJN: [id number] /
--- NOTE | 2018-05-10 00:03 | P.PN ---
Subjective Progress Note Date: 05/09/18 This is a 57-year-old male patient with past medical history of prostate cancer status post resection and more recently of squamous cell tongue cancer completed chemotherapy and radiation therapy March 20. No surgery was required. He had an admission in March which time he had a PEG tube placement Dr. Malloy. Patient has been on tube feedings and tolerating them has gained a couple pounds back. He states he still has some sore throat in one spot where the cancer was located but otherwise no difficulty swallowing. Patient states that he developed nausea, vomiting and fever for about 4-5 days along with runny nose. He apparently was vomiting all night long and finally came into Dr. Ye's office and subsequently sent into the emergency center for evaluation and admission. Influenza A positive. Patient presented with pancytopenia with white count 3.3, hemoglobin 9.3, platelet count 122. Albumin is 3.5. He underwent a computed tomography scan of the brain that was negative. Neck and chest CAT scan with contrast revealed tumor on the left oropharynx and hypopharyngeal airway consistent with tumor. Findings suggest favorable treatment response. There is a nodule infiltrate in the right lower lobe that is inflammatory or metastatic disease. Mild cervical lymphadenopathy. Patient was started on Tamiflu this morning. He is also started on fluconazole and cefepime. 05/09/2018 the patient is feeling somewhat better today. His fever is resolved. Shortness of breath is improved. Still has difficulty with eating but the thrush is improved. Objective - Vital Signs Vital signs: Vital Signs Temp 97.6 F 05/09/18 21:00 Pulse 73 05/09/18 21:00 Resp 16 05/09/18 21:00 BP 123/63 05/09/18 21:00 Pulse Ox 99 05/09/18 21:00 Intake & Output 05/09/18 05/09/18 05/10/18 06:59 18:59 06:59 Intake Total 250 Balance 250 Intake: Tube Feeding 250 Other: Voiding Method Toilet Toilet - Exam Gen: This is a 57-year-old male. Resting quietly He appears to be in no acute distress. HEENT: Head is atraumatic, normocephalic. Pupils equal, round. Sclerae is anicteric. Conjunctiva pink. Mucous membranes of the mouth are moist. No thrush noted. NECK: Supple. No JVD. No lymphadenopathy. No thyromegaly. LUNGS: Symmetrical air entry. Expiratory wheezes no bronchial sounds HEART: Regular rate and rhythm. No murmur. ABDOMEN: Soft. Bowel sounds are present. No masses. No tenderness. PEG tube epigastric area with no surrounding tenderness, erythema. EXTREMITIES: No pedal edema. No calf tenderness. NEUROLOGICAL: Patient is awake, alert and oriented x3. - Labs CBC & Chem 7: 05/09/18 06:43 05/09/18 06:43 Labs: Abnormal Lab Results - Last 24 Hours (Table) 05/09/18 05/09/18 Range/Units 06:43 06:43 WBC 1.9 L (3.8-10.6) k/uL RBC 2.97 L (4.30-5.90) m/uL Hgb 8.2 L (13.0-17.5) gm/dL Hct 27.8 L (39.0-53.0) % MCHC 29.5 L (31.0-37.0) g/dL RDW 15.8 H (11.5-15.5) % Plt Count 109 L (150-450) k/uL Neutrophils # (Manual) 1.10 L (1.3-7.7) k/uL Lymphocytes # (Manual) 0.53 L (1.0-4.8) k/uL BUN 23 H (9-20) mg/dL Total Protein 5.5 L (6.3-8.2) g/dL Albumin 3.1 L (3.5-5.0) g/dL Microbiology - Last 24 Hours (Table) 05/07/18 14:58 Blood Culture - Preliminary Blood No Growth after 48 hours Laboratory Results WBC 1.9 k/uL (3.8-10.6) L 05/09/18 06:43 RBC 2.97 m/uL (4.30-5.90) L 05/09/18 06:43 Hgb 8.2 gm/dL (13.0-17.5) L 05/09/18 06:43 Hct 27.8 % (39.0-53.0) L 05/09/18 06:43 MCV 93.8 fL (80.0-100.0) 05/09/18 06:43 MCH 27.7 pg (25.0-35.0) 05/09/18 06:43 MCHC 29.5 g/dL (31.0-37.0) L 05/09/18 06:43 RDW 15.8 % (11.5-15.5) H 05/09/18 06:43 Plt Count 109 k/uL (150-450) L 05/09/18 06:43 Neutrophils % Not Reportable 05/09/18 06:43 Neutrophils % (Manual) 56 % 05/09/18 06:43 Band Neutrophils % 2 % 05/09/18 06:43 Lymphocytes % Not Reportable 05/09/18 06:43 Lymphocytes % (Manual) 28 % 05/09/18 06:43 Monocytes % Not Reportable 05/09/18 06:43 Monocytes % (Manual) 12 % 05/09/18 06:43 Eosinophils % Not Reportable 05/09/18 06:43 Eosinophils % (Manual) 2 % 05/09/18 06:43 Basophils % Not Reportable 05/09/18 06:43 Neutrophils # Not Reportable 05/09/18 06:43 Neutrophils # (Manual) 1.10 k/uL (1.3-7.7) L 05/09/18 06:43 Lymphocytes # Not Reportable 05/09/18 06:43 Lymphocytes # (Manual) 0.53 k/uL (1.0-4.8) L 05/09/18 06:43 Monocytes # Not Reportable 05/09/18 06:43 Monocytes # (Manual) 0.23 k/uL (0-1.0) 05/09/18 06:43 Eosinophils # Not Reportable 05/09/18 06:43 Eosinophils # (Manual) 0.04 k/uL (0-0.7) 05/09/18 06:43 Basophils # Not Reportable 05/09/18 06:43 Nucleated RBCs 0 /100 WBC (0-0) 05/09/18 06:43 Manual Slide Review Performed 05/09/18 06:43 Poikilocytosis (manual Present 05/09/18 06:43 Sodium 139 mmol/L (137-145) 05/09/18 06:43 Potassium 4.7 mmol/L (3.5-5.1) 05/09/18 06:43 Chloride 106 mmol/L (98-107) 05/09/18 06:43 Carbon Dioxide 29 mmol/L (22-30) 05/09/18 06:43 Anion Gap 4 mmol/L 05/09/18 06:43 BUN 23 mg/dL (9-20) H 05/09/18 06:43 Creatinine 0.70 mg/dL (0.66-1.25) 05/09/18 06:43 Est GFR (CKD-EPI)AfAm >90 (>60 ml/min/1.73 sqM) 05/09/18 06:43 Est GFR (CKD-EPI)NonAf >90 (>60 ml/min/1.73 sqM) 05/09/18 06:43 Glucose 83 mg/dL (74-99) 05/09/18 06:43 Calcium 8.7 mg/dL (8.4-10.2) 05/09/18 06:43 Phosphorus 3.5 mg/dL (2.5-4.5) 05/08/18 13:11 Magnesium 1.8 mg/dL (1.6-2.3) 05/08/18 13:11 Iron 46 ug/dL (65-175) L 05/08/18 13:11 TIBC 283 ug/dL (228-460) 05/08/18 13:11 Iron Saturation 16.25 (15.00-50.00) 05/08/18 13:11 Ferritin 1503.1 ng/mL (22.0-322.0) H 05/08/18 13:11 Total Bilirubin 0.2 mg/dL (0.2-1.3) 05/09/18 06:43 AST 17 U/L (17-59) 05/09/18 06:43 ALT 26 U/L (21-72) 05/09/18 06:43 Alkaline Phosphatase 49 U/L (38-126) 05/09/18 06:43 Total Protein 5.5 g/dL (6.3-8.2) L 05/09/18 06:43 Albumin 3.1 g/dL (3.5-5.0) L 05/09/18 06:43 Vitamin D 25-Hydroxy 27.6 ng/mL (30.0-100.0) L 05/07/18 14:58 Influenza Type A RNA Detected (Not Detectd) H 05/08/18 00:05 Influenza Type B (PCR) Not Detected (Not Detectd) 05/08/18 00:05 Microbiology 05/07/18 14:58 Blood Blood Culture - Preliminary No Growth after 48 hours Assessment and Plan (1) Influenza A Narrative/Plan: This very pleasant 57-year-old male has the history of prior prostate carcinoma and more recently squamous cell carcinoma of the tongue which is completed his chemoradiation therapy on March 20. He did require PEG tube placement because of inability to maintain his nutrition. He became acutely ill before admission although did not have much of a fever he still was feeling well and influenza testing was positive. He's never started on Tamiflu with evidence of a new pulmonary infiltrate antibiotic therapy with cefepime was also added. There apparently was also some thrush and fluconazole had been added. The patient is not feeling considerably better with hydration antiviral therapy antibiotic therapy in the treatment of thrush. These will be continued. Once the patient has recovered white blood cell count transition to oral antibiotic therapy and completion of Tamiflu can be performed. Will also likely continue to complete a course of fluconazole. Cultures are process which may further direct therapy but with his clinical improvement would expect patient to be ready for discharge the next few days. It is likely a viral infection as well as the likely pneumonia resulted in the transient pancytopenia and expect this to rapidly improve. 05/09/2018 the patient is starting to feel somewhat better. He is without fever or chills. Shortness of breath is improved. He is quite pleased that he is feeling so much better. Patient will likely be ready for discharge home in the next short period of time. Prescriptions are sent to his pharmacy to complete his course of Tamiflu, as well as fluconazole. Cefepime transition to cefepime to complete a course of therapy for pneumonia in this immunocompromised individual. We discussed at great length his ability to try to improve his intake. Utilizing material such as grapefruit juice or tomato juice are helpful to stimulate taste which then may allow him to have improved oral intake and to then hopefully reduce tube feeds. Current Visit: Yes Status: Acute Code(s): J10.1 - FLU DUE TO OTH IDENT INFLUENZA VIRUS W OTH RESP MANIFEST SNOMED Code(s): 843451254 (2) Leukopenia Current Visit: Yes Status: Acute Code(s): D72.819 - DECREASED WHITE BLOOD CELL COUNT, UNSPECIFIED SNOMED Code(s): 43978912 (3) Dysphagia Current Visit: No Status: Acute Priority: High Code(s): R13.10 - DYSPHAGIA, UNSPECIFIED SNOMED Code(s): 76336036
[2018-05-10] MEDS: CEFEPIME 2 GM in SODIUM CHLORIDE 0.9% 100 ML IVPB SCH ×2 (00:23→09:21)
[2018-05-10] MEDS: PANTOPRAZOLE 40 MG TABLET PO SCH (09:20)
[2018-05-10] MEDS: LORazepam 0.5 MG TAB PO SCH (09:21)
[2018-05-10] MEDS: HEPARIN SODIUM,PORCINE 5,000 UNIT/ML 1 ML VIAL SQ SCH (09:21)
[2018-05-10] MEDS: MULTIVITAMINS, THERA 1 EACH TAB PO SCH (09:22)
[2018-05-10] MEDS: OSELTAMIVIR 75 MG CAP PO SCH (09:22)
[2018-05-10 11:47] LABS: Basophils % (A) 0 %; Eosinophils % (A) 2 %; Lymphocytes # (A) 0.4 k/uL (1.0-4.8); Lymphocytes % (A) 22 %; MCH 30.4 pg (25.0-35.0); MCHC 32.3 g/dL (31.0-37.0); MCV 94.2 fL (80.0-100.0); Monocytes # (A) 0.2 k/uL (0-1.0); Monocytes % (A) 8 %; Neutrophils # (A) 1.3 k/uL (1.3-7.7); Neutrophils % (A) 66 %; Platelet Count 112 k/uL (150-450); RBC 3.19 m/uL (4.30-5.90); RDW 15.7 % (11.5-15.5); WBC 1.9 k/uL (3.8-10.6)
[2018-05-10 11:55] LABS: HGB 9.7 gm/dL (13.0-17.5)
[2018-05-10 11:58] LABS: Anion Gap 4 mmol/L; Blood Urea Nitrogen 19 mg/dL (9-20); Calcium 8.8 mg/dL (8.4-10.2); Carbon Dioxide 31 mmol/L (22-30); Chloride 104 mmol/L (98-107); Glucose 111 mg/dL (74-99); Potassium 4.2 mmol/L (3.5-5.1); Sodium 139 mmol/L (137-145)
[2018-05-10 13:20] VITALS: BP 133/64; PULSE 71; TEMP 97.6
--- NOTE | 2018-05-10 20:24 | P.PN ---
Subjective Progress Note Date: 05/10/18 This is a 57-year-old male patient with past medical history of prostate cancer status post resection and more recently of squamous cell tongue cancer completed chemotherapy and radiation therapy March 20. No surgery was required. He had an admission in March which time he had a PEG tube placement Dr. Malloy. Patient has been on tube feedings and tolerating them has gained a couple pounds back. He states he still has some sore throat in one spot where the cancer was located but otherwise no difficulty swallowing. Patient states that he developed nausea, vomiting and fever for about 4-5 days along with runny nose. He apparently was vomiting all night long and finally came into Dr. Ye's office and subsequently sent into the emergency center for evaluation and admission. Influenza A positive. Patient presented with pancytopenia with white count 3.3, hemoglobin 9.3, platelet count 122. Albumin is 3.5. He underwent a computed tomography scan of the brain that was negative. Neck and chest CAT scan with contrast revealed tumor on the left oropharynx and hypopharyngeal airway consistent with tumor. Findings suggest favorable treatment response. There is a nodule infiltrate in the right lower lobe that is inflammatory or metastatic disease. Mild cervical lymphadenopathy. Patient was started on Tamiflu this morning. He is also started on fluconazole and cefepime. 05/09/2018 the patient is feeling somewhat better today. His fever is resolved. Shortness of breath is improved. Still has difficulty with eating but the thrush is improved. 05/10/2018 patient is feeling better today. The ready for discharge to home. Fever is resolved. He does have some leukopenia but it is stable. No other new symptoms. Attempting to improve his oral intake. Objective - Vital Signs Vital signs: Vital Signs Temp 97.6 F 05/10/18 11:42 Pulse 71 05/10/18 11:42 Resp 16 05/10/18 11:42 BP 133/64 05/10/18 11:42 Pulse Ox 98 05/10/18 11:42 Intake & Output 05/10/18 05/10/18 05/11/18 06:59 18:59 06:59 Intake Total 125 Balance 125 Intake: Tube Feeding 125 Other: Voiding Method Toilet Toilet - Exam Gen: This is a 57-year-old male. Resting quietly He appears to be in no acute distress. HEENT: Head is atraumatic, normocephalic. Pupils equal, round. Sclerae is anicteric. Conjunctiva pink. Mucous membranes of the mouth are moist. No thrush noted. NECK: Supple. No JVD. No lymphadenopathy. No thyromegaly. LUNGS: Symmetrical air entry. Few expiratory wheezes no bronchial sounds HEART: Regular rate and rhythm. No murmur. ABDOMEN: Soft. Bowel sounds are present. No masses. No tenderness. PEG tube epigastric area with no surrounding tenderness, erythema. EXTREMITIES: No pedal edema. No calf tenderness. NEUROLOGICAL: Patient is awake, alert and oriented x3. - Labs CBC & Chem 7: 05/10/18 11:18 05/10/18 11:18 Labs: Abnormal Lab Results - Last 24 Hours (Table) 05/10/18 05/10/18 Range/Units 11:18 11:18 WBC 1.9 L (3.8-10.6) k/uL RBC 3.19 L (4.30-5.90) m/uL Hgb 9.7 L D (13.0-17.5) gm/dL Hct 30.0 L (39.0-53.0) % RDW 15.7 H (11.5-15.5) % Plt Count 112 L (150-450) k/uL Lymphocytes # 0.4 L (1.0-4.8) k/uL Carbon Dioxide 31 H (22-30) mmol/L Creatinine 0.65 L (0.66-1.25) mg/dL Glucose 111 H (74-99) mg/dL Microbiology - Last 24 Hours (Table) 05/07/18 14:58 Blood Culture - Preliminary Blood No Growth after 72 hours Laboratory Results WBC 1.9 k/uL (3.8-10.6) L 05/10/18 11:18 RBC 3.19 m/uL (4.30-5.90) L 05/10/18 11:18 Hgb 9.7 gm/dL (13.0-17.5) L D 05/10/18 11:18 Hct 30.0 % (39.0-53.0) L 05/10/18 11:18 MCV 94.2 fL (80.0-100.0) 05/10/18 11:18 MCH 30.4 pg (25.0-35.0) 05/10/18 11:18 MCHC 32.3 g/dL (31.0-37.0) 05/10/18 11:18 RDW 15.7 % (11.5-15.5) H 05/10/18 11:18 Plt Count 112 k/uL (150-450) L 05/10/18 11:18 Neutrophils % 66 % 05/10/18 11:18 Neutrophils % (Manual) 56 % 05/09/18 06:43 Band Neutrophils % 2 % 05/09/18 06:43 Lymphocytes % 22 % 05/10/18 11:18 Lymphocytes % (Manual) 28 % 05/09/18 06:43 Monocytes % 8 % 05/10/18 11:18 Monocytes % (Manual) 12 % 05/09/18 06:43 Eosinophils % 2 % 05/10/18 11:18 Eosinophils % (Manual) 2 % 05/09/18 06:43 Basophils % 0 % 05/10/18 11:18 Neutrophils # 1.3 k/uL (1.3-7.7) 05/10/18 11:18 Neutrophils # (Manual) 1.10 k/uL (1.3-7.7) L 05/09/18 06:43 Lymphocytes # 0.4 k/uL (1.0-4.8) L 05/10/18 11:18 Lymphocytes # (Manual) 0.53 k/uL (1.0-4.8) L 05/09/18 06:43 Monocytes # 0.2 k/uL (0-1.0) 05/10/18 11:18 Monocytes # (Manual) 0.23 k/uL (0-1.0) 05/09/18 06:43 Eosinophils # 0.0 k/uL (0-0.7) 05/10/18 11:18 Eosinophils # (Manual) 0.04 k/uL (0-0.7) 05/09/18 06:43 Basophils # 0.0 k/uL (0-0.2) 05/10/18 11:18 Nucleated RBCs 0 /100 WBC (0-0) 05/09/18 06:43 Manual Slide Review Performed 05/09/18 06:43 Poikilocytosis (manual Present 05/09/18 06:43 Sodium 139 mmol/L (137-145) 05/10/18 11:18 Potassium 4.2 mmol/L (3.5-5.1) 05/10/18 11:18 Chloride 104 mmol/L (98-107) 05/10/18 11:18 Carbon Dioxide 31 mmol/L (22-30) H 05/10/18 11:18 Anion Gap 4 mmol/L 05/10/18 11:18 BUN 19 mg/dL (9-20) 05/10/18 11:18 Creatinine 0.65 mg/dL (0.66-1.25) L 05/10/18 11:18 Est GFR (CKD-EPI)AfAm >90 (>60 ml/min/1.73 sqM) 05/10/18 11:18 Est GFR (CKD-EPI)NonAf >90 (>60 ml/min/1.73 sqM) 05/10/18 11:18 Glucose 111 mg/dL (74-99) H 05/10/18 11:18 Calcium 8.8 mg/dL (8.4-10.2) 05/10/18 11:18 Phosphorus 3.5 mg/dL (2.5-4.5) 05/08/18 13:11 Magnesium 1.8 mg/dL (1.6-2.3) 05/08/18 13:11 Iron 46 ug/dL (65-175) L 05/08/18 13:11 TIBC 283 ug/dL (228-460) 05/08/18 13:11 Iron Saturation 16.25 (15.00-50.00) 05/08/18 13:11 Ferritin 1503.1 ng/mL (22.0-322.0) H 05/08/18 13:11 Total Bilirubin 0.2 mg/dL (0.2-1.3) 05/09/18 06:43 AST 17 U/L (17-59) 05/09/18 06:43 ALT 26 U/L (21-72) 05/09/18 06:43 Alkaline Phosphatase 49 U/L (38-126) 05/09/18 06:43 Total Protein 5.5 g/dL (6.3-8.2) L 05/09/18 06:43 Albumin 3.1 g/dL (3.5-5.0) L 05/09/18 06:43 Vitamin D 25-Hydroxy 27.6 ng/mL (30.0-100.0) L 05/07/18 14:58 Influenza Type A RNA Detected (Not Detectd) H 05/08/18 00:05 Influenza Type B (PCR) Not Detected (Not Detectd) 05/08/18 00:05 Microbiology 05/07/18 14:58 Blood Blood Culture - Preliminary No Growth after 72 hours Assessment and Plan (1) Influenza A Narrative/Plan: This very pleasant 57-year-old male has the history of prior prostate carcinoma and more recently squamous cell carcinoma of the tongue which is completed his chemoradiation therapy on March 20. He did require PEG tube placement because of inability to maintain his nutrition. He became acutely ill before admission although did not have much of a fever he still was feeling well and influenza testing was positive. He's never started on Tamiflu with evidence of a new pulmonary infiltrate antibiotic therapy with cefepime was also added. There apparently was also some thrush and fluconazole had been added. The patient is not feeling considerably better with hydration antiviral therapy antibiotic therapy in the treatment of thrush. These will be continued. Once the patient has recovered white blood cell count transition to oral antibiotic therapy and completion of Tamiflu can be performed. Will also likely continue to complete a course of fluconazole. Cultures are process which may further direct therapy but with his clinical improvement would expect patient to be ready for discharge the next few days. It is likely a viral infection as well as the likely pneumonia resulted in the transient pancytopenia and expect this to rapidly improve. 05/09/2018 the patient is starting to feel somewhat better. He is without fever or chills. Shortness of breath is improved. He is quite pleased that he is feeling so much better. Patient will likely be ready for discharge home in the next short period of time. Prescriptions are sent to his pharmacy to complete his course of Tamiflu, as well as fluconazole. Cefepime transition to cefepime to complete a course of therapy for pneumonia in this immunocompromised individual. We discussed at great length his ability to try to improve his intake. Utilizing material such as grapefruit juice or tomato juice are helpful to stimulate taste which then may allow him to have improved oral intake and to t hen hopefully reduce tube feeds. 05/10/2018 patient feels considerably improved from admission. Shortness of breath is improved. Difficulty swallowing is improved with current treatments. The plan is for the patient be discharged home. Finish his course of Tamiflu. Antibiotic therapy with cefuroxime will be completed for treatment of infiltrate likely related to the influenza. Lastly patient will be treated with fluconazole for some oral thrush. He is at risk for thrush because of his mascorro ited By status post recent chemotherapy and radiation for his tongue cancer. He is being tube fed currently. We have several long discussions regarding the importance of him starting to obtain his calories orally rather than by PEG feeding. He is advised to utilize juices such as grapefruit juice and tomato juice to stimulate his tongue and to cleanse the oral cavity. He should avoid the foods that he truly loves until his taste is no longer so poor. His wanted to take him to get a shake. I suggested he gets a pineapple shake, this has strong flavored and can be eaten with a spoon which limits the coldness of the shake. He seems encouraged to try to improve his oral intake. He will follow up with the office only if there is further need. His PET scan has been delayed by at least a week to allow resolution of the inflammation within his chest. Status: Acute Code(s): J10.1 - FLU DUE TO OTH IDENT INFLUENZA VIRUS W OTH RESP MANIFEST SNOMED Code(s): 804995691 (2) Leukopenia Status: Acute Code(s): D72.819 - DECREASED WHITE BLOOD CELL COUNT, UNSPECIFIED SNOMED Code(s): 83775551 (3) Dysphagia Status: Acute Priority: High Code(s): R13.10 - DYSPHAGIA, UNSPECIFIED SNOMED Code(s): 35206405
--- NOTE | 2018-05-11 05:58 | DS ---
DISCHARGE SUMMARY DATE OF SERVICE: 05/10/2018 FINAL DIAGNOSES: 1. Fever, possible acute influenza A with possible acute right lower lobe pneumonia, possibly gram-negative. 2. Mild pancytopenia. 3. 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 4. Hyponatremia. 5. Odynophagia and PEG tube placement. 6. History of prostate cancer surgery. 7. History of anxiety. 8. History of vitamin D deficiency. DISCHARGE DISPOSITION: The patient will be discharged in stable condition with guarded prognosis. HISTORY OF PRESENT ILLNESS: This 57-year-old gentleman with a past medical history of multiple medical problems admitted with abdominal pain, nausea, vomiting and fever. Flu was positive, treated symptomatically. Dr. Low saw the patient as well as Oncology followed the patient closely. The patient improved significantly. On exam, vitals are stable. CARDIOVASCULAR: S1, S2 muffled. ABDOMEN: Soft. NERVOUS SYSTEM: No focal deficits. DISCHARGE ADVICE: 1. Diet is cardiac. 2. Activity limited until followup. 3. Follow up with primary care physician in one week. 4. Follow up with Oncology as recommended. Medications are: 1. Ativan 0.5 mg b.i.d. 2. Fentanyl patch 25 mcg q.72 hours. 3. Multivitamin one p.o. daily. 4. Protonix 40 mg daily. 5. Zofran p.r.n. 6. Ceftin 500 mg p.o. b.i.d. for 5 days. 7. Fluconazole 200 mg p.o. daily for 10 days. 8. Tamiflu 75 mg p.o. b.i.d. for 6 more tablets. MMODL / IJN: [id number] /
== END 2018-05-10 14:40 | disposition home or self-care (01) | DRG 178 ==
LOC: 3NMEDONC 13:46
PROVIDERS: ADMIT Hospitalist; ATTEND Hospitalist
DX: J10.08 Influenza due to other identified influenza virus with other specified pneumonia (principal); D61.818 Other pancytopenia; J15.6 Pneumonia due to other Gram-negative bacteria; E87.1 Hypo-osmolality and hyponatremia; B37.0 Candidal stomatitis; R13.10 Dysphagia, unspecified; E86.0 Dehydration; E55.9 Vitamin D deficiency, unspecified; E78.5 Hyperlipidemia, unspecified; F41.9 Anxiety disorder, unspecified; R91.1 Solitary pulmonary nodule; R59.0 Localized enlarged lymph nodes; Z79.891 Long term (current) use of opiate analgesic; Z79.899 Other long term (current) drug therapy; Z85.810 Personal history of malignant neoplasm of tongue; Z92.21 Personal history of antineoplastic chemotherapy; Z92.3 Personal history of irradiation; Z93.1 Gastrostomy status; Z85.46 Personal history of malignant neoplasm of prostate; Z90.79 Acquired absence of other genital organ(s); Z82.0 Family history of epilepsy and other diseases of the nervous system
CPT/HCPCS: 70470; 70491; 71045; 71260; 80048; 80053; 82306; 82728; 83540; 83550; 83735; 84100; 85025; 87040; 87502

== ENCOUNTER → 2018-05-29 | Outpatient (CLI) | payer OTHER ==
--- NOTE | 2018-06-01 07:19 | PE ---
EXAMINATION TYPE: PET CT fusion skull to thigh DATE OF EXAM: 05/29/2018 CLINICAL HISTORY: 57-year-old male restaging throat cancer status post chemoradiation completed in 2018. Patient with history of prostate surgery for prostate cancer in 2018 as well. TECHNIQUE: Following the intravenous administration of 13.0 mCi of F-18 FDG, coned-down imaging of the head and neck was performed followed by whole body images are performed from the skull base to th e midthigh. Images are reviewed on the computer in the coronal, axial, and sagittal planes. Reconst ructed rotating images are created on independent workstation and reviewed on the computer. A local ization and attenuation correction CT is performed in conjunction with the PET scan. Glucose level: 93 mg/dL CTDI: 2.31 & 3.51 mGy DLP: 69.66 & 353.45 mGy-cm COMPARISON: 01/17/2018. FINDINGS: PET: Previous soft tissue mass and associated increased activity along the left posterior tongue has resol alize. Some small left upper cervical lymph nodes are also decreased in size and no longer show any increase d uptake. Lymph nodes here measure only 4 mm short axis. Mild reticulations in the subcutaneous fat suggests interval radiation therapy change. There is redemonstrated nodule within the right lobe of the thyroid gland showing focal intense uptak e, max SUV 5.2 versus 6.7, previously. New nodular band of atelectasis at the posterior right base shows no discrete FDG uptake. Physiologi c FDG uptake within the chest. Average liver SUV 2.2. Otherwise, physiologic FDG uptake in the abdomen and pelvis. ATTENUATION CORRECTION CT: The parotid glands appear atrophic as compared to prior exam. Paranasal sinuses, mastoid air cells, a nd orbits and globes appear clear. Heart normal size without pericardial effusion. Aorta normal caliber with conventional arch vessel br anching anatomy. No thoracic lymphadenopathy identified. No consolidation or pleural effusion. No dilated small bowel, free fluid, or free air. No mesenteric or retroperitoneal lymphadenopathy. Mild circumference of bladder wall thickening may relate to chronic lateral hypertrophy of post thera py changes. Prostate gland surgically absent. No pelvic lymphadenopathy identified. Bones: Degenerative changes mid to lower lumbar spine and endplate spondylosis mid to lower thoracic spine. IMPRESSION: 1. Complete metabolic and CT response to the tumor along the posterior left tongue and the previously seen small upper left cervical lymph nodes. 2. Persistent intense uptake involving a right thyroid lobe nodule. Both benign adenoma and thyroid c ancer are differential considerations. Recommend thyroid ultrasound to further characterize this nodu le and determine the need for FNA.
== END | disposition home or self-care (01) ==
LOC: RADPETMAIN 15:32
PROVIDERS: ATTEND Internal Medicine Critical Care Medicine
DX: C76.0 Malignant neoplasm of head, face and neck (principal); Z92.21 Personal history of antineoplastic chemotherapy; Z92.3 Personal history of irradiation
CPT/HCPCS: 78815; A9552

== ENCOUNTER → 2018-06-03 | Outpatient (CLI) | payer OTHER ==
--- NOTE | 2018-06-03 13:24 | US ---
EXAMINATION TYPE: US venous doppler duplex UE RT DATE OF EXAM: 06/03/2018 COMPARISON: NONE CLINICAL HISTORY: I82.611 Acute embolism and thrombosis of superficial. Acute embolism and thrombosis of superficial veins of upper extremity per order. Hx throat cancer. SIDE PERFORMED: Right Grayscale, color doppler, spectral doppler imaging performed of the deep veins of the right upper ext remity. There is normal flow, compressibility and vascular waveforms. Right Arm: Negative for DVT Scanned area of concern right lateral forearm. Non-compressible superficial vein visualized. IMPRESSION: No sonographic evidence of deep venous thrombosis of the right upper extremity. Positive for superfic ial venous thrombosis of the right lateral forearm in the area of concern.
== END | disposition home or self-care (01) ==
LOC: RADUSWWP 11:14
PROVIDERS: ATTEND Radiology Radiation Oncology
DX: I82.611 Acute embolism and thrombosis of superficial veins of right upper extremity (principal)

== ENCOUNTER → 2018-08-28 | Outpatient (CLI) | payer OTHER ==
[2018-08-28 10:08] LABS: African American GFR (CKD) >90 (>60 ml/min/1.73 sqM); Blood Urea Nitrogen 27 mg/dL (9-20)
--- NOTE | 2018-08-28 11:23 | CT ---
EXAMINATION TYPE: CT neck chest w con DATE OF EXAM: 08/28/2018 COMPARISON: 05/07/2018 HISTORY: Head and Neck Squamous Cell CA CT DLP: 709.1 mGycm CONTRAST: CT scan of the neck is performed with IV Contrast, patient injected with 100 mL of Isovue 300. Contrast enhanced CT of the neck was performed from the skull base through the lung apices. AIRWAY: There is a mild asymmetric thickening involving the left sided oropharynx and hypopharynx. Th ere is also mild asymmetry at the base of the left tongue. Correlate clinically for the patient's sit e of known squamous cell carcinoma. No significant progression is identified. The remaining airway is unremarkable at this time. SALIVARY GLANDS: The submandibular and parotid glands are free of mass or inflammatory process. THYROID GLAND: Hypoechoic nodule right thyroid lobe measuring 1.8 x 0.8 cm. Similar ultrasound correl ation. LYMPH NODES: No adenopathy seen greater than 1cm. LUNG APICES: No nodule or mass is seen. OTHER: Vascular structures are patent. No significant degenerative change of the cervical spine. N o abscess seen. Mucous retention cysts or polyps within the maxillary sinuses. IMPRESSION: 1. Persistent asymmetry of the left-sided oropharynx and hypopharynx as well as the base of the tongu e. Correlate for patient's known site of malignancy. No interval progression or adenopathy. 2. Right thyroid nodule is is complex in appearance. Correlate with ultrasound. Standard tissue diagn osis if indicated. EXAMINATION TYPE: CT neck chest w con DATE OF EXAM: 08/28/2018 COMPARISON: 05/07/2018 HISTORY: Head and Neck Squamous Cell CA CT DLP: 709.1 mGycm Automated exposure control for dose reduction was used. CONTRAST: CT scan of the chest is performed with IV Contrast, patient injected with 100 mL of Isovue 300. FINDINGS: LUNGS: The lungs are grossly clear, there is no concerning parenchymal mass or nodule identified. T here is no pleural effusion or pneumothorax seen. The tracheobronchial tree is patent. MEDIASTINUM: Nodular infiltrate right lower lobe has improved. There is a linear scar redemonstrated in this region. Additional left parenchymal linear scar in the region of the lingula. No evidence for mass or infiltrate. Thoracic aorta is of normal caliber. The heart is not enlarged. UPPER ABDOMEN: No significant abnormality appreciated. OTHER: No additional significant abnormality is seen. IMPRESSION: Nodular infiltrate right lower lobe has improved. There is a linear scar redemonstrated in this regio n. Additional left parenchymal linear scar in the region of the lingula. No evidence for mass or infi ltrate.
== END | disposition home or self-care (01) ==
LOC: RADCTMAIN 08:53
PROVIDERS: ATTEND Internal Medicine Hematology & Oncology
DX: C76.0 Malignant neoplasm of head, face and neck (principal); J98.4 Other disorders of lung
CPT/HCPCS: 82565; 84520; 70491; 71260; 36415; Q9967

== ENCOUNTER → 2018-12-10 | Outpatient (CLI) | payer OTHER ==
--- NOTE | 2018-12-10 15:56 | CT ---
EXAMINATION TYPE: CT soft tissue neck w con DATE OF EXAM: 12/10/2018 COMPARISON: 08/28/2018 HISTORY: Follow up for throat cancer. CT DLP: 428 mGycm CONTRAST: CT scan of the neck is performed with IV Contrast, patient injected with 100ml mL of Isovue 300. Contrast enhanced CT of the neck was performed from the skull base through the lung apices. AIRWAY: Previously noted areas of asymmetry of the left-sided oropharynx and hypopharynx and base of the tongue has improved. I do not see evidence for distinct mass at this time. Remainder of the airwa y is unremarkable. SALIVARY GLANDS: The submandibular and parotid glands are free of mass or inflammatory process. THYROID GLAND: No nodules or masses seen. LYMPH NODES: No adenopathy seen greater than 1cm. LUNG APICES: No nodule or mass is seen. OTHER: Vascular structures are patent. No significant degenerative change of the cervical spine. N o abscess seen. IMPRESSION: Previously noted areas of asymmetry of the left-sided oropharynx and hypopharynx and base of the tong ue has improved. I do not see evidence for distinct mass at this time.
== END | disposition home or self-care (01) ==
LOC: RADCTMAIN 15:05
PROVIDERS: ATTEND Internal Medicine Hematology & Oncology
DX: C76.0 Malignant neoplasm of head, face and neck (principal)
CPT/HCPCS: 70491; Q9967

== ENCOUNTER → 2019-03-22 | Outpatient (CLI) | payer OTHER ==
--- NOTE | 2019-03-23 10:06 | CT ---
EXAMINATION TYPE: CT neck chest w con DATE OF EXAM: 03/22/2019 6:09 PM COMPARISON: 12/10/2018 CT soft tissue neck, PET/CT dated 05/29/2018, and CT soft tissue neck dated . HISTORY: throat and prostate CA CT DLP: 722 mGycm Automated exposure control for dose reduction was used. CONTRAST: CT scan of the neck is performed following with IV Contrast, patient injected with 100 mL of Isovue 3 00. Axial images are obtained, coronal and sagittal reformatted images are reviewed. FINDINGS: Airway: Again the previously seen asymmetry of the left lateral tongue base is no longer apparent on CT. Oropharynx appear symmetric. Valleculae and piriform sinuses are maintained. Symmetric palatine t onsils. True and false focal cords are unremarkable. Parotid/submandibular glands: No gross abnormality seen. Carotid/Vascular Structures: Suboptimal bolus timing however the carotid arteries are grossly patent in their common carotid artery portions and cervical internal carotid artery portions with mild ather osclerosis bilaterally at the carotid bulbs. The vertebral arteries are also widely patent and codomi nant. Osseous Structures: There is expansile groundglass opacity of the right temporal bone with lytic lucency is seen anterior to the mastoid air cells measuring approximately 1.7 cm. This appears retrospectively unchanged from the prior examinations dating back to 12/23/2017 and could represent fibrous dysplasia as the latera l and medial cortices are maintained. Paget's disease is another consideration. There is mild retrolisthesis of C4 on C5 and small posterior disc osteophyte complexes of the cervica l spine. Mild degenerative disc disease overall. The thoracic spine also demonstrates mild degenerati ve disc disease. Endplate sclerosis is seen. No suspicious lesion. Very mild superior endplate deform ity appears to be on the basis of degenerative disc disease with adjacent Schmorl's node and maintain ed anterior superior endplate height. Lungs: Multifocal pleural parenchymal scarring is seen at the lung bases, right greater than left whi ch are angular atelectasis of the right lung base. No pulmonary mass, focal consolidation, or pleural effusion is seen. Main tracheobronchial tree is patent. Mediastinum: No greater than 1 cm short axis lymph nodes are seen within the mediastinum. Heart is no nenlarged. No pericardial effusion. No significant coronary artery calcifications on CT. No central p ulmonary embolism. No thoracic aortic aneurysm. Other: Upper abdomen is limited but visualized portions are grossly unremarkable. Slight heterogeneit y of the thyroid gland is seen with probable 1.6 cm right thyroid nodule. No abnormal adenopathy is s een in the neck. Polypoid mucosal thickening in the right maxillary sinus measures 1.5 cm versus muco rimma retention cyst. Scant mucosal thickening of the left maxillary sinus is also seen. IMPRESSION: 1. There remains response to treatment as the previously seen left tongue base mass is no longer evid ent on CT. No adenopathy of the head or neck. No new pulmonary nodule. 2. Retrospectively stable groundglass expansile and slightly lytic lucency of the right temporal bone dating back to 2018. Given stability considerations are for fibrous dysplasia or Paget's disease.
== END | disposition home or self-care (01) ==
LOC: RADCTMAIN 17:42
PROVIDERS: ATTEND Internal Medicine Hematology & Oncology
DX: C76.0 Malignant neoplasm of head, face and neck (principal)
CPT/HCPCS: 70491; 71260; Q9967

== ENCOUNTER → 2019-09-28 | Outpatient (CLI) | payer OTHER ==
--- NOTE | 2019-09-29 06:09 | XR ---
EXAMINATION TYPE: XR chest 2V DATE OF EXAM: 09/28/2019 COMPARISON: Chest CT March 22, 2019. HISTORY: History of throat cancer. TECHNIQUE: Frontal and lateral views of the chest are obtained. FINDINGS: There is mild chronic emphysematous change without suspicious new focal air space opacity, pleural effusion, or pneumothorax seen. The cardiac silhouette size remains within normal limits. The osseous structures are intact. IMPRESSION: Mild chronic emphysematous change without acute pulmonary process.
--- NOTE | 2019-09-29 07:56 | CT ---
EXAMINATION TYPE: CT soft tissue neck w con DATE OF EXAM: 09/28/2019 HISTORY: Throat cancer centered left tongue base diagnosed late 2018. COMPARISON: PET CT January 17, [address] March 22, [address] DLP: 425.90 mGycm. Automated Exposure Control for Dose Reduction was Utilized. TECHNIQUE: CT scan of the neck is performed with IV Contrast, patient injected with 100 mL of Isovue 300, axial images are obtained, coronal and sagittal reformatted images are reviewed. FINDINGS: Airway: No suspicious recurrent mass with attention to the left tongue base at area of original neopl asm on studies from late 2018. Airway remains overall patent. Stable greater than 1 cm lower pole hyp odense right thyroid nodule which is noted hypermetabolic prior PET CTs. Lung apices remain clear. Parotid/submandibular glands: No gross abnormality seen. Carotid/Vascular Structures: Mild calcified plaque bilateral carotid bulb level redemonstrated. Osseous Structures: Slight grade 1 retrolisthesis C3 on C4 and C4 on C5. Moderate disc space narrowin g with vacuum disc phenomenon at C4-C5 and C6-C7 levels. Levoconvex scoliosis centered upper thoracic spine redemonstrated. Persistent asymmetric expansion and lucency of the right temporal bone axial i mage 93 favoring fibrous dysplasia. Other: No new greater than 1 cm neck adenopathy identified. A few scattered subcentimeter lymph nodes remain present. IMPRESSION: No suspicious new mucosal mass or adenopathy to suggest neoplastic recurrence. Stable hy permetabolic greater than 1 cm right thyroid nodule should be correlated clinically.
== END | disposition home or self-care (01) ==
LOC: RADCTMAIN 18:01
PROVIDERS: ATTEND Internal Medicine Hematology & Oncology
DX: J43.9 Emphysema, unspecified (principal); C76.0 Malignant neoplasm of head, face and neck; D72.819 Decreased white blood cell count, unspecified; E78.00 Pure hypercholesterolemia, unspecified
CPT/HCPCS: 71046; 70491; Q9967

== ENCOUNTER → 2020-03-28 | Outpatient (CLI) | payer OTHER ==
--- NOTE | 2020-03-30 08:16 | CT ---
EXAMINATION TYPE: CT neck chest w con DATE OF EXAM: 03/28/2020 COMPARISON: 09/28/2019 HISTORY: f/u throat ca CT DLP: 659.6 mGycm CONTRAST: Patient injected with 100 mL of Isovue 300. TECHNIQUE: Axial images at 3 mm thick sections. Reconstructed images in the coronal plane and sagitt al plane are reviewed. FINDINGS: Limited CT sections are obtained the lung apices. The lung apices appear clear. CT neck: The torus tubarius and fossa of Rosenmuller are normal. Photocopy Operator spaces are normal. Para nasal sinuses and mastoid air cells are clear. Parotid glands appear normal and symmetrical. Submandibular glands, are normal. Parapharyngeal spac es are normal. No suspicious adenopathy is evident. The hypopharynx appears within normal limits. Vocal cord level appear symmetrical. Thyroid as visualized is normal. Osseous structures are normal. IMPRESSIONS: 1. No suspicious acute changes to suggest metastatic or recurrent neoplasm. EXAMINATION TYPE: CT neck chest w con DATE OF EXAM: 03/28/2020 COMPARISON: 03/22/2019 HISTORY: f/u throat ca CT DLP: 659.6 mGycm, Automated exposure control for dose reduction was used. CONTRAST: Performed injected with 100 mL of Isovue 300. TECHNIQUE: Axial images were obtained at 5 mm thick sections. Reconstructed images are reviewed on [employer] computer in the coronal plane. FINDINGS: Thyroid is slightly heterogenous. Hypodensities within the inferior right lobe thyroid. Thi s could be further evaluated with ultrasound. There is a linear streak opacity in posterior lateral right lung base most likely on the basis of ate lectasis. Otherwise, no suspicious lung nodules or focal infiltrates are present. No enlarged mediastinal or hilar adenopathy is evident. The ascending aorta diameter at the level o f the main pulmonary artery is 3.2 cm. The main pulmonary artery diameter at the bifurcation is 2.[address] sections are obtained through the upper abdomen. Abdomen is essentially unremarkable. IMPRESSIONS: 1. Minimal streak atelectasis right lung base. 2. No suspicious changes to suggest metastatic disease.
== END | disposition home or self-care (01) ==
LOC: RADCTMAIN 17:00
PROVIDERS: ATTEND Internal Medicine Hematology & Oncology
DX: C76.0 Malignant neoplasm of head, face and neck (principal); J98.11 Atelectasis
CPT/HCPCS: 70491; 71260; Q9967

== ENCOUNTER → 2020-10-20 | Outpatient (CLI) | payer OTHER ==
--- NOTE | 2020-10-22 08:09 | CT ---
EXAMINATION TYPE: CT neck chest w con DATE OF EXAM: 10/20/2020 COMPARISON: Most recent CT March 28, 2020 and older studies. HISTORY: f/u throat ca CT DLP: 736.4 mGycm. Automated Exposure Control for Dose Reduction was Utilized. TECHNIQUE: CT scan of the neck and thorax are performed following with IV Contrast, patient injected with 100 mL of Isovue 300. FINDINGS: Neck: Airway: No suspicious recurrent mass with attention to the left tongue base at area of original neopl asm on studies from late 2018. Airway remains overall preserved. Stable greater than 1 cm lower pole hypodense right thyroid nodule which is noted hypermetabolic on prior PET CTs. Other: Mild calcified plaque bilateral carotid bulb level redemonstrated. Slight grade 1 retrolisthesis C3 on C4 and C4 on C5 redemonstrated. Moderate disc space narrowing at C4-C5 and C6-C7 levels redemonstrated. Levoconvex scoliosis centered upper thoracic spine redemonstra sravan. Persistent asymmetric expansion and lucent sclerosis of the right temporal bone axial image 93 f avoring fibrous dysplasia. Occasional tiny mucous retention cyst and/or polyp in the bilateral inferior maxillary sinuses. Scattered prominent but subcentimeter neck lymph nodes are stable. No new greater than 1 cm adenopath y. Chest: LUNGS: Persistent mild bibasilar linear scarring. There is no pleural effusion or pneumothorax seen . The tracheobronchial tree is patent. MEDIASTINUM: There are no greater than 1 cm hilar or mediastinal lymph nodes. No cardiomegaly or pe ricardial effusion is seen. OTHER: Underlying scoliosis. Multilevel spurring in the spine. IMPRESSION: No new suspicious mass or adenopathy to suggest neoplastic recurrence.
== END | disposition home or self-care (01) ==
LOC: RADCTMAIN 18:52
PROVIDERS: ATTEND Internal Medicine Hematology & Oncology
DX: Z08 Encounter for follow-up examination after completed treatment for malignant neoplasm (principal); Z85.21 Personal history of malignant neoplasm of larynx
CPT/HCPCS: 70491; 71260; Q9967

== ENCOUNTER → 2021-05-03 | Outpatient (CLI) | payer OTHER ==
--- NOTE | 2021-05-04 19:36 | CT ---
EXAMINATION TYPE: CT neck chest w con DATE OF EXAM: 05/03/2021 7:29 PM COMPARISON: CT neck 10/20/2020 HISTORY: h/o neck CA, f/u obs for mets CT DLP: 850.1 mGycm Automated exposure control for dose reduction was used. CONTRAST: CT scan of the neck and chest is performed following with IV Contrast, patient injected with 100 mL o f Isovue 300. Axial images are obtained, coronal and sagittal reformatted images are reviewed. FINDINGS: Lungs/airways: No evidence of pneumothorax, pleural effusion or focal consolidation. There is streaky atelectasis/scarring within the lung bases. No suspicious nodules or masses. Oropharynx: The oropharynx mucosa looks symmetric. No evidence of asymmetric irregularity involving t he left base of the tongue in setting of prior primary neoplasm. Airway: No gross abnormality seen. Parotid/submandibular glands: No gross abnormality seen. Carotid/Vascular Structures: Mild atherosclerosis of the proximal internal carotid arteries bilateral ly. The major vessels are patent. Osseous Structures: No suspicious osseous lesions. Multilevel disc degeneration changes of the visual ized spine worse at C4-C5. Other: Similar right thyroid gland nodule measuring 12 mm. Mild mucosal thickening paranasal sinuses. IMPRESSION: No evidence of recurrence or metastatic disease in the neck or chest.
== END | disposition home or self-care (01) ==
LOC: RADCTMAIN 18:55
PROVIDERS: ATTEND Internal Medicine Hematology & Oncology
DX: C76.0 Malignant neoplasm of head, face and neck (principal)
CPT/HCPCS: 70491; 71260; Q9967

== ENCOUNTER → 2021-11-16 | Outpatient (CLI) | payer OTHER ==
--- NOTE | 2021-11-16 09:53 | CT ---
EXAMINATION TYPE: CT neck chest w con DATE OF EXAM: 11/16/2021 9:22 AM COMPARISON: CT neck chest 05/03/2021. HISTORY: Follow up for throat cancer x [address] DLP: 1229 mGycm Automated exposure control for dose reduction was used. CONTRAST: CT scan of the neck and chest is performed following with IV Contrast, patient injected with 100 mL o f Isovue 370. Axial images are obtained, coronal and sagittal reformatted images are reviewed. FINDINGS: Lungs/airways: No evidence of pneumothorax, pleural effusion or focal consolidation. There is linear scarring within the lung bases. No suspicious nodules or masses. Oropharynx: The oropharynx mucosa looks symmetric. No evidence of asymmetric irregularity involving t he left base of the tongue in setting of prior primary neoplasm. Airway: No gross abnormality seen. Parotid/submandibular glands: No gross abnormality seen. Carotid/Vascular Structures: Mild atherosclerosis of the proximal internal carotid arteries bilateral ly. The major vessels are patent. Osseous Structures: No suspicious osseous lesions. Multilevel disc degeneration changes of the visual ized spine. This is most prominent at C4-C5. Other: Similar right thyroid gland hypodense nodule measuring 12 mm. Mild mucosal thickening of the p aranasal sinuses. IMPRESSION: No evidence of recurrence or metastatic disease in the neck and chest.
== END | disposition home or self-care (01) ==
LOC: RADCTMAIN 08:44
PROVIDERS: ATTEND Internal Medicine Hematology & Oncology
DX: C76.0 Malignant neoplasm of head, face and neck (principal)
CPT/HCPCS: 70491; 71260

== ENCOUNTER → 2022-05-17 | Outpatient (CLI) | payer BC ==
--- NOTE | 2022-05-17 11:24 | CT ---
EXAMINATION TYPE: CT neck chest w con DATE OF EXAM: 05/17/2022 COMPARISON: Prior CT neck and chest November 16, 2021 HISTORY: Hx head, neck, face ca. Regular follow up, no concerns. CT DLP: 797.80 mGycm. Automated Exposure Control for Dose Reduction was Utilized. TECHNIQUE: CT scan of the neck and thorax are performed following with IV Contrast, patient injected with 100 mL of Isovue 300. FINDINGS: Neck: Airway: No suspicious recurrent mass with attention to the left tongue base at area of original neopl asm on studies from late 2018. Airway remains overall preserved. Stable greater than 1 cm lower pole hypodense right thyroid nodule which is noted hypermetabolic on prior PET CTs. Seen currently axial i mage 34 Other: Mild calcified plaque bilateral carotid bulb level redemonstrated. Slight grade 1 retrolisthesis C3 on C4 and C4 on C5 redemonstrated. Moderate disc space narrowing at C4-C5 and C6-C7 levels redemonstrated. Levoconvex scoliosis centered upper thoracic spine redemonstra sravan. Persistent asymmetric expansion and lucent sclerosis of the right temporal bone axial image 93 f avoring fibrous dysplasia. Occasional tiny mucous retention cyst and/or polyp in the bilateral inferior maxillary sinuses. Scattered prominent but subcentimeter neck lymph nodes are stable. No new greater than 1 cm adenopath y. Chest: LUNGS: Persistent mild bibasilar linear scarring. There is no pleural effusion or pneumothorax seen . The tracheobronchial tree is patent. No suspicious new greater than 5 mm pulmonary nodules MEDIASTINUM: There are no new greater than 1 cm hilar or mediastinal lymph nodes. No cardiomegaly o r pericardial effusion is seen. OTHER: Underlying scoliosis is redemonstrated. Multilevel spurring in the spine. IMPRESSION: No new suspicious mass or adenopathy to suggest neoplastic recurrence. No significant mirna nge from most recent prior CTs.
== END | disposition home or self-care (01) ==
LOC: RADCTMAIN 10:08
PROVIDERS: ATTEND Internal Medicine Hematology & Oncology
DX: C76.0 Malignant neoplasm of head, face and neck (principal); Z03.89 Encounter for observation for other suspected diseases and conditions ruled out
CPT/HCPCS: 70491; 71260; Q9967

== ENCOUNTER → 2022-11-15 | Outpatient (CLI) | payer BC ==
--- NOTE | 2022-11-15 10:57 | CT ---
EXAMINATION TYPE: CT neck chest w con DATE OF EXAM: 11/15/2022 COMPARISON: 05/17/2022, 11/16/2021 HISTORY: 62-year-old male C76.0, h/o throat CA, f/u TECHNIQUE: Contiguous axial scanning of the soft tissue neck and chest performed with IV Contrast, pa tient injected with 100 mL of Isovue 300. Coronal/sagittal reconstructions performed. CT DLP: 753.3 mGycm Automated exposure control for dose reduction was used. FINDINGS: NECK: Mild mucosal thickening maxillary sinuses. Mastoid air cells well pneumatized. Visualized intracrania l structures and orbits and globes appear clear. Nasopharynx is clear. Oropharynx is clear. The glottic and subglottic structures as well as the tracheal column are clear. Some minimal low density nodularity in the thyroid gland measuring up to 7 mm is unchanged. Submandibular glands and parotid glands are atrophic. No suspicious cervical lymphadenopathy seen. Mild atherosclerotic changes of the bilateral carotid bifurcations. Bones: Moderate spondylotic change mid to lower cervical spine. Posterior disc bulge C3-C4 may contri bute to [id number] narrowing of the spinal canal. Degenerative grade 1 retrolisthesis C3-C4 and C4-C5. CHEST: The heart is normal size without pericardial effusion. Aorta normal caliber with conventional arch vessel branching anatomy. No thoracic lymph adenopathy by CT size criteria. Mild emphysematous change. Some nodular subpleural atelectasis posteriorly in the lungs. Bandlike sca rring posterior right base. No consolidation or pleural effusion. Visualized upper abdomen shows no gross abnormality. Bones: Mild multilevel degenerative disc disease. Scattered levels of prominent anterior endplate spo ndylosis. Reverse S-shaped curvature thoracic spine. IMPRESSION: NECK AND CHEST WITHOUT SUSPICIOUS LYMPHADENOPATHY OR MASS TO SUGGEST RECURRENT DISEASE. COPD WITH MIL D EMPHYSEMA.
== END | disposition home or self-care (01) ==
LOC: RADCTMAIN 08:49
PROVIDERS: ATTEND Internal Medicine Hematology & Oncology
DX: C76.0 Malignant neoplasm of head, face and neck (principal); E78.00 Pure hypercholesterolemia, unspecified; D72.819 Decreased white blood cell count, unspecified; J43.9 Emphysema, unspecified
CPT/HCPCS: 70491; 71260; Q9967

== ENCOUNTER → 2023-06-13 | Outpatient (CLI) | payer BC ==
--- NOTE | 2023-06-14 22:05 | CT ---
EXAMINATION TYPE: CT neck chest w con DATE OF EXAM: 06/13/2023 COMPARISON: 11/15/2022 HISTORY: hx of throat ca CT DLP: 802 mGycm CONTRAST: Patient injected with 100ml mL of Isovue 300. TECHNIQUE: Axial images at 3 mm thick sections. Reconstructed images in the coronal plane and sagitt al plane are reviewed. FINDINGS: Limited CT sections are obtained the lung apices. The lung apices appear clear. CT neck: The torus tubarius and fossa of Rosenmuller are normal. Director Advanced spaces are normal. Para nasal sinuses and mastoid air cells are clear. Parotid glands appear normal and symmetrical. Submandibular glands, are normal. Parapharyngeal spac es are normal. No suspicious adenopathy is evident. The hypopharynx appears within normal limits. Vocal cord level appear symmetrical. Thyroid as visualized is normal. Osseous structures are normal. IMPRESSION: 1. No suspicious changes to suggest recurrent neoplasm. EXAMINATION TYPE: CT neck chest w con DATE OF EXAM: 06/13/2023 COMPARISON: None HISTORY: hx of throat ca CT DLP: 802 mGycm, Automated exposure control for dose reduction was used. CONTRAST: Performed injected with 100ml mL of Isovue 300. TECHNIQUE: Axial images were obtained at 5 mm thick sections. Reconstructed images are reviewed on [employer] computer in the coronal plane. FINDINGS: Portion of the thyroid visualized is normal. There is a 0.8 cm nodule within the right posterior costophrenic sulcus. Image 58 some mild compressi ve atelectasis within the dependent right lung. No enlarged mediastinal or hilar adenopathy is evident. The ascending aorta diameter at the level o f the main pulmonary artery is 3.4 cm. The main pulmonary artery diameter at the bifurcation is 2.[address] sections are obtained through the upper abdomen. Abdomen is essentially unremarkable. IMPRESSION: 1. Nodule posterior right lung base. This may been present previously. 2. Suspicious additional change is not evident.
== END | disposition home or self-care (01) ==
LOC: RADCTMAIN 10:07
PROVIDERS: ATTEND Internal Medicine Hematology & Oncology
DX: C76.0 Malignant neoplasm of head, face and neck (principal); D72.819 Decreased white blood cell count, unspecified; E78.00 Pure hypercholesterolemia, unspecified; R91.1 Solitary pulmonary nodule
CPT/HCPCS: 70491; 71260; Q9967

== ENCOUNTER 2023-12-16 08:59 | Day surgery (SDC) | payer BC ==
[~2023-12-16 08:59] MED LIST changes: -DEXAMETHASONE SOD PHOSPHATE 10 MG/ML 1 ML VIAL IV ONE; -DEXAMETHASONE SOD PHOSPHATE 4 MG/ML 1 ML VIAL IV ONE; -FAMOTIDINE 20 MG/2 ML VIAL IV ONE; -HYDROmorphone 0.5 MG/0.5 ML SYRINGE IVP PRN; -LACTATED RINGERS 1,000 ML IV SCH; +LIDOCAINE 1% (10MG/ML) FOR IV START INTRADERMA PRN; -ONDANSETRON 4 MG/2 ML VIAL IVP ONE; +ONDANSETRON 4 MG/2 ML VIAL IVP PRN; -Pre Op ABX Message 1 EACH MISC MISCELLANE ONE; -ceFAZolin 1,000 MG in DEXTROSE/WATER 1 50ML.BAG IV ONE
[2023-12-16] MEDS: IV FLUID CONTINUATION 1,000 ML IV ONE (09:32)
[2023-12-16 09:34] VITALS: TEMP 97.1
[2023-12-16] MEDS: LACTATED RINGERS 1,000 ML IV SCH (09:40)
[2023-12-16] MEDS ORDERED: PROPOFOL 10 MG/ML 20 ML VIAL IV ONE (10:08)
--- NOTE | 2023-12-16 10:23 | P.PCN ---
Date of Procedure: 12/16/23 Procedure(s) Performed: BRIEF HISTORY: Patient is a 63-year-old pleasant white male scheduled for an elective colonoscopy as a part of screening for colon cancer. PROCEDURE PERFORMED: Colonoscopy with biopsy. PREOPERATIVE DIAGNOSIS: Screening for colon cancer. IV sedation per Anesthesia. PROCEDURE: After informed consent was obtained, the patient, was brought into the endoscopy unit. IV sedation was administered by Anesthesia under continuous monitoring. Digital rectal examination was normal. Initially the Olympus CF-160 flexible video colonoscope was then inserted in the rectum, gradually advanced into the cecum without any difficulty. Careful examination was performed as the scope was gradually being withdrawn. Ileocecal valve and the appendiceal orifice were visualized and appeared normal. Prep was excellent. Mucosa of the cecum normal. In the ascending colon there was a 4 mm flat sessile polyp that was removed by cold biopsy. Rest of, ascending colon, transverse colon, descending colon, sigmoid colon, and rectum appeared normal. Retroflexion was performed in the rectum and no lesions were seen. The patient tolerated the procedure well. IMPRESSION: 4 mm ascending colon polyp status post cold biopsy Rest of the colon appeared normal RECOMMENDATIONS: Findings of this examination were discussed with the patient as well as his family. He was advised to follow-up with the biopsy results. If the biopsy reveals adenoma he can have repeat colonoscopy in 5 years..
[2023-12-16 11:26] VITALS: BP 120/75; PULSE 81; RESP 18
== END 2023-12-16 11:18 | disposition home or self-care (01) ==
LOC: ORWHC2ENDO 08:59
PROVIDERS: ATTEND Internal Medicine Gastroenterology
DX: Z12.11 Encounter for screening for malignant neoplasm of colon (principal); D12.2 Benign neoplasm of ascending colon; E78.5 Hyperlipidemia, unspecified; Z85.89 Personal history of malignant neoplasm of other organs and systems; Z79.899 Other long term (current) drug therapy
CPT/HCPCS: 45380; J2704; 88305

== ENCOUNTER → 2024-06-18 | Outpatient (CLI) | payer BC ==
--- NOTE | 2024-06-18 12:32 | CT ---
EXAMINATION TYPE: CT chest wo con CT DLP: 249.1 mGycm, Automated exposure control for dose reduction was used. DATE OF EXAM: 06/18/2024 11:15 AM COMPARISON: Multiple CT neck chest with most recent 06/13/2023 CLINICAL INDICATION:Male, 63 years old with history of C76.0 HEAD AND NECK CANCER; [facility], hx of throat ca TECHNIQUE: Multiple axial images were obtained through the chest without IV contrast. Lack of IV or o ral contrast limits evaluation of solid and hollow organ viscera. . Coronal and sagittal reformats re viewed. FINDINGS: LUNGS/ PLEURA: No pleural effusion, pneumothorax, focal consolidation. Similar linear scarring within the right lower lobe. Stable superior segment right lower lobe 3.5 mm pulmonary nodule from multiple exams and consider benign (series 4, image 24). No new or enlarging pulmonary nodules. AIRWAY: Patent and unremarkable.. HEART: Size within normal limits. . No pericardial effusion. Minimal coronary artery calcifications. MEDIASTINUM: No gross evidence of adenopathy. VASCULATURE: No aortic aneurysm. MUSCULOSKELETAL: No acute osseous abnormalities. No aggressive osseous lesion. Mild multilevel degene rative disc disease. Mild dextrocurvature of the thoracic spine. SOFT TISSUES/LYMPH NODES: Unremarkable. LOWER NECK: No significant findings. UPPER ABDOMEN: No significant findings. IMPRESSION: No evidence of metastatic disease within the chest. [facility] Charity Henley, , 06/18/2024 12:30 PM
== END | disposition home or self-care (01) ==
LOC: RADCTMAIN 10:49
PROVIDERS: ATTEND Internal Medicine Hematology & Oncology
DX: C76.0 Malignant neoplasm of head, face and neck (principal)
CPT/HCPCS: 71250